=== PATIENT | male | born 1945 | race Caucasian/White ===

== ENCOUNTER 2018-05-14 12:55 | Outpatient (CLI) | payer MEDICARE, SELFPAY ==
--- NOTE | 2018-05-14 13:38 | W.PREOPHP ---
Date of service: 05/14/18 Assessment and Plan (1) Osteoarthritis of left knee: Current visit: Yes Status: Chronic Patient has severe osteoarthritis of the left knee, and after conservative treatment has elected to move forward with a left total knee replacement. Details of surgery discussed with patient as well as risks and pertinent anatomy. All questions were answered. History of Present Illness Chief Complaint: Left knee pain Narrative: Jaylon is a 72-year-old male with severe memory loss, making him a poor historian. He is here with his who fills in most of the history. Jaylon complains of left knee pain that has been going on for many years. He has recently in the last year had a right total knee replacement. He has also been treated for left knee pain conservatively for many years. He has had injections, and done exercises to try to keep this knee healthy as long as possible. According to his he is gotten to the point where his knee is painful on a daily basis. He is done very well from a right total knee replacement, and is looking to move forward with a left total knee replacement. He has had x-rays done which does show severe arthritis in the left knee, with complete loss of joint space. Due to failure of conservative treatments at this point, Jaylon and his would like to move forward with a left total knee replacement. Pertinent Surgical Information Patient denies history of CVA, MA, angina, asthma, COPD, renal or liver disorders, hepatitis, bleeding disorders, diabetes, immune or thyroid disorders. No complications from anesthesia. Patient has had recent workup for his heart which includes a stress test with echocardiogram. This test resulted in normal results, anesthesia is aware. Review of Systems Constitutional Denies fever(s) ENT Denies dizziness and Denies sore throat Cardiovascular Denies chest pain, Denies palpitations and Denies dyspnea Respiratory Denies dyspnea Gastrointestinal Denies abdominal pain, Denies melena, Denies hematochezia, Denies diarrhea, Denies nausea and Denies vomiting Genitourinary Denies hematuria and Denies dysuria Neurologic Denies dizziness Endocrine Denies palpitations [facility] Family History Mother Personal history of malignant neoplasm Father Personal history of malignant neoplasm Sister No problems noted. Brother Essential hypertension Heart disease Hyperlipidemia Grandfather Personal history of malignant neoplasm Grandfather No problems noted. Grandmother No problems noted. Grandmother No problems noted. Medical History Hypertension (Chronic) Social History Smoking/Tobacco Use Status: Former Tobacco Use Surgical History Colonoscopy - MAC (07/27/13) PROCEDURES Meds Home Medications Medication Instructions Recorded Confirmed Type vitamin B comp with C no.4 [Super 1 tab PO DAILY 11/02/12 04/22/17 History B Complex] omega-3 fatty acids-fish oil [Fish 1 ea PO DAILY 06/10/13 05/14/18 History Oil 1,000 Mg Capsule] memantine [Namenda Xr] 28 mg PO DAILY #60 tab-cap 09/05/15 05/14/18 History naproxen sodium [Aleve] 2 tab PO BID 05/07/16 05/14/18 History losartan-hydrochlorothiazide 1 tab PO DAILY #90 tab 02/09/18 05/14/18 Rx [Hyzaar 100-25 Tablet] amlodipine 5 mg tablet 5 mg PO DAILY #90 tab-cap 04/30/18 05/14/18 Rx Allergies Allergy/AdvReac Type Severity Reaction Status Date / Time simvastatin AdvReac JOINT PAIN Unverified 04/22/17 09:29 Exam [facility] Head: normocephalic and atraumatic General nose exam: no nasal discharge Throat: uvula midline and no uvular edema Other: soft palate rises symmetrically, no erythema Eyes Conjunctivae: conjunctivae normal Sclera: sclerae normal Pupils: PERRL Resp Effort & Inspection: normal respiratory effort Auscultation: clear to auscultation bilaterally and no wheezes Cardio Rate: regular rate Rhythm: regular rhythm Heart Sounds: S1 normal, S2 normal and no murmurs Results Labs : 05/14/18 14:18 05/14/18 14:18
--- NOTE | 2018-05-14 13:41 | HPE_ITS ---
Date of service: 05/14/18 Assessment and Plan (1) Osteoarthritis of left knee: Current visit: Yes Status: Chronic Patient has severe osteoarthritis of the left knee, and after conservative treatment has elected to move forward with a left total knee replacement. Details of surgery discussed with patient as well as risks and pertinent anatomy. All questions were answered. History of Present Illness Chief Complaint: Left knee pain Narrative: Jaylon is a 72-year-old male with severe memory loss, making him a poor historian. He is here with his who fills in most of the history. Jaylon complains of left knee pain that has been going on for many years. He has recently in the last year had a right total knee replacement. He has also been treated for left knee pain conservatively for many years. He has had injections , and done exercises to try to keep this knee healthy as long as possible. According to his he is gotten to the point where his knee is painful on a daily basis. He is done very well from a right total knee replacement, and is looking to move forward with a left total knee replacement. He has had x-rays done which does show severe arthritis in the left knee, with complete loss of joint space. Due to failure of conservative treatments at this point, Jaylon and his would like to move forward with a left total knee replacement. Pertinent Surgical Information Patient denies history of CVA, PR, angina, asthma, COPD, renal or liver disorders, hepatitis, bleeding disorders, diabetes, immune or thyroid disorders. No complications from anesthesia. Patient has had recent workup for his heart which includes a stress test with echocardiogram. This test resulted in normal results, anesthesia is aware. Review of Systems Constitutional Denies fever(s) ENT Denies dizziness and Denies sore throat Cardiovascular Denies chest pain, Denies palpitations and Denies dyspnea Respiratory Denies dyspnea Gastrointestinal Denies abdominal pain, Denies melena, Denies hematochezia, Denies diarrhea, Denies nausea and Denies vomiting Genitourinary Denies hematuria and Denies dysuria Neurologic Denies dizziness Endocrine Denies palpitations [facility] Family History Mother Personal history of malignant neoplasm Father Personal history of malignant neoplasm Sister No problems noted. Brother Essential hypertension Heart disease Hyperlipidemia Grandfather Personal history of malignant neoplasm Grandfather No problems noted. Grandmother No problems noted. Grandmother No problems noted. Medical History Hypertension (Chronic) Social History Smoking/Tobacco Use Status: Former Tobacco Use Surgical History Colonoscopy - MAC (07/27/13) PROCEDURES Meds Home Medications Medication Instructions Recorded Confirmed Type vitamin B comp with C no.4 [Super 1 tab PO DAILY 11/02/12 04/22/17 History B Complex] omega-3 fatty acids-fish oil [Fish 1 ea PO DAILY 06/10/13 05/14/18 History Oil 1,000 Mg Capsule] memantine [Namenda Xr] 28 mg PO DAILY #60 tab-cap 09/05/15 05/14/18 History naproxen sodium [Aleve] 2 tab PO BID 05/07/16 05/14/18 History losartan-hydrochlorothiazide 1 tab PO DAILY #90 tab 02/09/18 05/14/18 Rx [Hyzaar 100-25 Tablet] amlodipine 5 mg tablet 5 mg PO DAILY #90 tab-cap 04/30/18 05/14/18 Rx Allergies Allergy/AdvReac Type Severity Reaction Status Date / Time simvastatin AdvReac JOINT PAIN Unverified 04/22/17 09:29 Exam [facility] Head: normocephalic and atraumatic General nose exam: no nasal discharge Throat: uvula midline and no uvular edema Other: soft palate rises symmetrically, no erythema Eyes Conjunctivae: conjunctivae normal Sclera: sclerae normal Pupils: PERRL Resp Effort & Inspection: normal respiratory effort Auscultation: clear to auscultation bilaterally and no wheezes Cardio Rate: regular rate Rhythm: regular rhythm Heart Sounds: S1 normal, S2 normal and no murmurs Results Labs : 05/14/18 14:18 05/14/18 14:18
[2018-05-14 14:35] LABS: Abs Immature Grans 0.01 k/cumm (0.0-0.09); Absolute Basophil Count 0.02 k/cumm (0.0-0.2); Absolute Eosinophil Count 0.08 k/cumm (0.0-0.7); Absolute Lymphocyte Count 0.98 k/cumm (1.2-3.4); Absolute Monocyte Count 0.76 k/cumm (0.11-0.7); Absolute Neutrophil Count 3.41 k/cumm (1.2-6.7); Basophils % 0.4; Eosinophils % 1.5; HCT 42.9 % (40.0-50.0); HGB 14.6 g/dL (13.5-17.5); Immature Grans % 0.2; Lymphocytes % 18.6; Mean Corpuscular Hemoglobin 32.2 pg (27.0-33.0); Mean Corpuscular Volume 94.5 fL (80-95); Monocytes % 14.4; Neutrophils % 64.9; Platelet Count 201 x1000/uL (130-400); RBC 4.54 m/cumm (4.50-6.00); RBC Distribution Width 12.8 % (11.8-14.1); White Blood Cell Count 5.26 k/cumm (4.4-10.8)
[2018-05-14 15:20] LABS: BUN 21 mg/dL (7-18); CREATININE 0.94 mg/dL (0.70-1.30); Chloride 101 mmol/L (98-107); Glucose 115 mg/dL (70-100); Sodium 138 mmol/L (136-145)
== END 2018-05-14 13:15 ==
PROVIDERS: PCP Emergency Medicine; Visit Provider Orthopaedic Surgery
DX: M25.562 Pain in left knee (principal); M17.12 Unilateral primary osteoarthritis, left knee; E78.00 Pure hypercholesterolemia, unspecified; I10 Essential (primary) hypertension
CPT/HCPCS: 36415; 80051; 82947; 84520; NC; 82565; 85025; 93005; 93010

== ENCOUNTER → 2018-05-19 07:35 | Outpatient (BNVA) | payer MEDICARE, SELFPAY | PROVIDERS: PCP Emergency Medicine; Referring Provider Emergency Medicine; Visit Provider Orthopaedic Surgery | DX: R69 Illness, unspecified (principal) ==

== ENCOUNTER 2018-05-19 08:44 | Inpatient (IN) | payer MEDICARE, SELFPAY ==
[2018-05-19] VITALS (13 sets, daily range): BP systolic 110–159; BP diastolic 61–99; PULSE 64–77; RESP 13–24; TEMP 36.4–36.8; O2SAT 91–97
[2018-05-19] MEDS: Lactated Ringers 1,000 ML 80 ML IV ×2 (10:10→14:53)
[2018-05-19] MEDS: Bupivacaine LIPOSOME/PF 133 MG/10 ML VIAL IJ (11:20)
[2018-05-19] MEDS: Bupivacaine 0.25% Pres-Free 10 ML VIAL (11:20)
[2018-05-19] MEDS: Hydrogen Peroxide 3% 480 ML BTL (12:55)
[2018-05-19] MEDS: Ketorolac 30 MG/ML VIAL (13:34)
--- NOTE | 2018-05-19 14:51 | DI.RAD_ITS ---
SYMPTOM/DIAGNOSIS: LT TOTAL KNEE ARTHROPLASTY, END STAGE OA LT KNEE LEFT KNEE: Two views. Comparison is made with 06/28/12. The patient is now status post left total knee replacement. The orthopedic hardware appears in good position. The bones are intact and normally mineralized. Skin cora are present. Vascular calcifications are seen in the soft tissues. IMPRESSION: Status post left TKR.
--- NOTE | 2018-05-19 15:54 | ROE_ITS ---
Date of Surgery: May 19, 2018 Preoperative Diagnosis: End-stage osteoarthritis, left knee, with varus deformity. Postoperative Diagnosis: End-stage osteoarthritis, left knee, with varus deformity. Procedure: Left total knee arthroplasty, cemented. Surgeon: Cecilio Wolfe M.D. Side Panel Hanger: Nikki Harvey PA-C Anesthetic: Adductor canal block followed by spinal anesthesia - [place] CRNA Prep: ChloraPrep Indications: This patient has aiqk-hy-fzrubduz dementia. He's status post successful right total knee arthroplasty approximately a year ago. He's having intractable symptoms of his left knee which have not responded to viscosupplementation or corticosteroid injections. In order to go upstairs at night to go to sleep he has to crawl on his hands and knees. He has a fairly good understanding of his knee symptomatology, but sometimes is forgetful of it. His was very anxious to have something done because of his incapacitation and his inability to walk any long distances. Radiographs confirm varus deformity. The patient had a similar degree of dementia a year ago and underwent successful right knee arthroplasty and the plan was to do the same clinical treatment of his left knee. The only exception was that I would maintain a Blount catheter in place because it had to be instilled on the night after surgery because he was unable to void. I greeted the patient in the Day Surgery holding area. He was pleasant and cooperative. He seemed to understand the planned procedure. I marked his left leg. Description of the Operative Procedure: He underwent adductor canal block with ultrasonic guidance, then he was taken and underwent spinal anesthesia. He was placed in the supine position and a Blount catheter was inserted without difficulty. The left leg was prepped with ChloraPrep and a pneumatic tourniquet was applied to the left proximal thigh. After exsanguinating the limb the tourniquet was inflated to 380 mmHg. A standard anterior approach for medial parapatellar arthrotomy for total knee arthroplasty was performed. Skin and subcutaneous tissues were incised and hemostasis was controlled by electrocautery. A copious amount of joint fluid was encountered and evacuated. There was no evidence of any infection. The patella was everted and osteophytes were trimmed off the medial tibial plateau and the medial femoral condyle. A subperiosteal release of a portion of the medial collateral ligament was done in order to correct his varus deformity. Anterior cruciate ligament was sectioned. Using an intramedullary guide quin, a 6-degree valgus bushing was placed in the femoral canal. The distal femur was resected based off this intramedullary guide. Care was taken to perform a 9 mm resection of the distal femur over the less-involved lateral side. This resulted in less bony resection on the medial femoral condyle distally. I then used instrumentation to make cuts over the femur for placement of a size #4 femoral component. This was the same size that was used on his left side. Anterior and posterior cuts were made as well as chamfer cuts and a size #4 femoral component fit appropriately. Next the posterior cruciate ligament was recessed and external alignment jig was then used to resect the proximal tibia, resecting more bone laterally than medially to correct for the varus deformity. I felt a size #4 tibial tray the most appropriate fit. Trial reduction was satisfactory. An intramedullary instrument was used then to create a channel for the rotating platform. The patella was measured with a caliper and measured 25 mm. It was resected by a combination of a cutting guide and a free- hand technique. I felt a 38 mm tri-prong patellar component would have the most appropriate fit. The lug fixation holes were drilled in the patella and a size 38 mm tri-prong patella fit, restoring the patellar thickness to 25 mm. The bone was prepared to cement fixation. Methylmethacrylate-containing gentamicin was placed and the tibial component was cemented. The cement was placed in a vacuum chamber. The cement was allowed to cure; extraneous amount was removed. A second batch of cement was then mixed to cement the patella and femoral components at the same time. After the cement was cured, care was taken to make sure all extraneous cement was removed. A final trial reduction was performed and the actual size #4 x 10 mm rotating platform component was inserted. There was no evidence of bearing spinout. Flexion and extension gaps were restored perfectly. Betadine irrigation was then performed; 17.5 cc of Betadine was placed in saline and irrigated into the knee. This was over the course of 3 minutes. It was then irrigated with 1000 cc of saline. Medial parapatellar arthrotomy was then performed, closing the capsule with sutures of #1 Vicryl in a [id number] fashion. The paratenon was repaired with 2-0 Vicryl. Subcutaneous tissues were repaired with 2-0 Vicryl. Prior to skin closure, the knee joint was infiltrated with 3 gm of tranexamic acid in 100 cc of saline to minimize bleeding. The tourniquet was released and hemostasis was under control. Subcutaneous tissues were closed with 2-0 Vicryl. The skin was closed with cora. Sterile bandages were applied consisting of Xeroform gauze, 4x4s, ABD pads, and a 6-inch conforming gauze bandage followed by a 6-inch HERNAN wrap, a Cryo/Cuff, and a commercial knee immobilizer. The patient had excellent return of dorsalis pedis pulse and was taken to the Recovery Room in satisfactory condition, tolerating the procedure well.
[2018-05-19] MEDS: POTASSIUM CHLORIDE/D5-0.9%NACL 1,000 ML 125 MEQ IV (17:21)
[2018-05-19] MEDS: Melatonin 3 MG TAB 9 MG PO (21:27)
[2018-05-19] MEDS: Acetaminophen 325 MG TAB 650 MG PO (23:45)
[2018-05-20] MEDS: POTASSIUM CHLORIDE/D5-0.9%NACL 1,000 ML 125 MEQ IV ×2 (01:03→10:54)
[2018-05-20 03:41] VITALS: BP 145/86; PULSE 74; RESP 18; TEMP 36.7; O2SAT 95
[2018-05-20] MEDS: Acetaminophen 325 MG TAB 650 MG PO ×3 (03:50→15:31)
[2018-05-20] MEDS: oxyCODONE 5 MG TAB PO ×3 (03:51→11:01)
[2018-05-20 07:25] VITALS: BP 143/83; PULSE 60; RESP 18; TEMP 36.8; O2SAT 93
[2018-05-20 07:29] LABS: HCT 36.5 % (40.0-50.0); HGB 12.6 g/dL (13.5-17.5); Mean Corp. HGB Concentration 34.5 g/dL (32.0-36.0); Mean Corpuscular Hemoglobin 32.9 pg (27.0-33.0); Mean Corpuscular Volume 95.3 fL (80-95); Mean Platelet Volume 10.5 fL (8.0-11.0); Platelet Count 174 x1000/uL (130-400); RBC 3.83 m/cumm (4.50-6.00); RBC Distribution Width 12.5 % (11.8-14.1); White Blood Cell Count 8.67 k/cumm (4.4-10.8)
[2018-05-20 07:35] VITALS: O2SAT 93
[2018-05-20] MEDS: Enoxaparin 30 MG/0.3 ML SYR SC ×2 (08:41→19:34)
[2018-05-20] MEDS: amLODIPine 5 MG TAB PO (08:42)
[2018-05-20] MEDS: Losartan 50 MG TAB 100 MG PO (08:42)
[2018-05-20] MEDS: Multivitamin w/Minerals TAB 1 TAB PO (08:43)
[2018-05-20] MEDS: Pantoprazole 40 MG TABCR PO (08:43)
[2018-05-20] MEDS: Hydrochlorothiazide 25 MG TAB PO (08:44)
--- NOTE | 2018-05-20 09:17 | IN_ITS ---
Date of service: 05/20/18 Time of Service: 08:06 PT Notes Date: 05/20/18 Referring Doctor: Dr. Cecilio Wolfe PT Orders: PT Consult s/p L TKA 05/19/18 Precautions: WBAT L LE PATIENT PROFILE/ADMITTING DIAGNOSIS: Patient is a 72yr old male s/p left total knee arthroplasty 05/19/[address] Wolfe. PMHX: s/p right total knee arthroplasty 04/22/17, osteoarthritis left knee, Alzheimer's disease, hard of hearing, tinnitus, C2 fracture, open reduction internal fixation L hip fracture, R ulnar plating, R Achilles tendon repair, R knee osteoarthritis, hyperlipidemia, diverticulosis, scrotal varices Social History/Home Situation: Lives at home with his , 2-3 steps with rail to enter, lives on 1 level, walk-in shower, Baseline mobility independent gait with no device, independent with ADLS Equipment owned/DME: shower seat, FWW SUBJECTIVE: Patient is lying in bed, alert and agreeable to PT consult, in room with patient assisting him. Pt asking when albert catheter can come out. OBJECTIVE: General Observation: Albert catheter, IV RUE, SCD's, knee immobilizer L LE, cryo cuff L knee Mental Status: A & O x2 oriented to person and situation Pain: no complaints BED MOBILITY/TRANSFERS: * knee immobilizer on for all transfers Supine-sit: HOB 30 degrees, independent Sit-stand: CGA with FWW Bed-chair: SBA with FWW Stand-sit: SBA GAIT: * knee immobilizer on for all gait CGA with FWW 50ftx2 WBAT L LE BALANCE: Static sitting: normal Dynamic Sitting: normal Static Standing: fair Dynamic Standing: fair SPECIAL TESTS: Mobility Limitations Standardized Measure [facility] AM -PAC ?6 clicks? Basic Mobility Inpatient Short Form: raw score: 18 standardized score: 43.63 CMS score: 46.58 % CMS modifier: CK INFORMED CONSENT/EDUCATION: Pt instructed in purpose of PT Consult and plan of care, with repeated verbal reminders of purpose of visit ASSESSMENT: Patient is a 72yr old male s/p left total knee arthroplasty by Dr. Wolfe in setting of s/p right total knee arthroplasty 04/22/17, Alzheimer's disease, hard of hearing, tinnitus, C2 fracture, open reduction internal fixation L hip fracture, R ulnar plating, R Achilles tendon repair. Patient presents with clinical signs and symptoms consistent with day 1 post op s/p left total knee arthroplasty as demonstrated by the following impairment level findings: decreased ROM left knee, decreased left quad strength, decreased strength with standing transfers, decreased gait stability requiring FWW due decreased static and dynamic standing balance post operatively. Pt was able to gait train in hallway this morning and transfer to chair for breakfast. good mobility with no complaints of pain, anticipate he will recover quickly. Plan is return to home setting with at discharge. Impairments are contributing to the following functional limitations: [facility] CMS score: 46.58% Patient is assessed as a moderate 42231 _x_ complexity based on the following: History: see above Examination: see above Presentation: evolving Decision Making: [facility] CMS score: 46.58% GOALS Goals x1 week 1. Supine-sit: independent HOB flat 2. Sit-Supine: independent HOB flat 3. Sit-Stand: supervision with FWW 4. Stand-sit: supervision 5. Bed-chair: SBA FWW 6. Chair-bed: SBA FWW 7. Gait: SBA FWW 150ft, WBAT R LE 8. Stairs: up and down 3 steps with railing, SBA 9. I with home exercise program for TKA PLAN OF CARE/TREATMENT PLAN: 1-2x/day, 7 days/ week x 1 week Plan of care has been reviewed with the EDGE BANDING MACHINE OFFBEARER providing the service under Physical therapy direction. Initiate physical therapy intervention for strengthening, bed mobility, transfers, gait, stairs, balance training, use of assistive device, use of knee immobilizer, cryocuff DISCHARGE RECOMMENDATIONS home with , patient has all DME TREATMENT TIME/MINUTES/CODES 25min IE 8:05 Talia Garcia PT
--- NOTE | 2018-05-20 10:03 | W.PM.PROGNOT ---
Assessment and Plan (1) Arthritis of left knee: Current visit: Yes Status: Acute s/p left total knee arthroplasty doing well. D/c albert. Continue iv prophylactic antibiotics until this pm. Surgical findings reviewed with patient and . Subjective Patient reports: no new complaints Exam Extrem Other: No neurovascular deficits left leg. Already up with physical therapy. Patient wants albert catheter removed Objective Objective Clinical Data: Abnormal lab results 05/20/18 Range/Units 06:45 RBC 3.83 L (4.50-6.00) m/cumm Hgb 12.6 L (13.5-17.5) g/dL Hct 36.5 L (40.0-50.0) % MCV 95.3 H (80-95) fL Vital Signs Temperature 98.2 F 05/20/18 07:25 Temperature Source Tympanic 05/20/18 07:25 Pulse 60 05/20/18 07:25 Pulse Rhythm Regular 05/19/18 22:37 Respiratory Rate 18 05/20/18 07:25 Respiratory Effort Non-Labored 05/19/18 22:37 Respiratory Depth Normal 05/19/18 22:37 Respiratory Pattern Normal 05/19/18 22:37 Blood Pressure 143/83 H 05/20/18 07:25 Pulse Oximetry 93 L 05/20/18 07:25 Oxygen Delivery Method Room Air 05/20/18 07:25 Oxygen Flow Rate 0 05/20/18 07:25 Pain Level 2 05/20/18 08:42 Intake & Output 05/19/18 05/19/18 05/20/18 11:59 23:59 11:59 Intake Total 50 / 50 1254.000 / 6044.532 5090. / 2021. Output Total 2094 / 2094 400 / 400 Balance 50 / 50 -841.000 / -837.082 0147.5 / 1622.5 Weight 205 lb 7.533 oz Intake: IV 50 / 50 1254.000 / 8076.739 3173.5 / 1062.5 Oral 960 / 960 Output: Urine 2074 / 2074 400 / 400 Estimated Blood Loss Other: Urine Color Pale Yellow Yellow Urine Appearance Clear Clear Emesis Description None Laboratory Results WBC 8.67 k/cumm (4.4-10.8) 05/20/18 06:45 RBC 3.83 m/cumm (4.50-6.00) L 05/20/18 06:45 Hgb 12.6 g/dL (13.5-17.5) L 05/20/18 06:45 Hct 36.5 % (40.0-50.0) L 05/20/18 06:45 MCV 95.3 fL (80-95) H 05/20/18 06:45 MCH 32.9 pg (27.0-33.0) 05/20/18 06:45 MCHC 34.5 g/dL (32.0-36.0) 05/20/18 06:45 RDW 12.5 % (11.8-14.1) 05/20/18 06:45 Plt Count 174 x1000/uL (130-400) 05/20/18 06:45 MPV 10.5 fL (8.0-11.0) 05/20/18 06:45
--- NOTE | 2018-05-20 11:12 | PT.INTREAT ---
Date of service: 05/20/18 Time of Service: 11:03 PT Notes Inpatient Physical Therapy Treatment Note Date: 05/20/18 PRECAUTIONS: WBAT L LE, knee immobilizer for L LE SUBJECTIVE: Pt sitting in recliner chair, agreeable to therapy session, daughter in room visiting. OBJECTIVE: General observation: IV R UE, knee immobilizer and cryocuff L LE PAIN: no c/o pain BED MOBILITY/TRANSFERS: * knee immobilizer on for all transfers Sit-stand: CGA with FWW Chair-bed: SBA with FWW Stand-sit: SBA Sit-supine: HOB flat independent GAIT: * knee immobilizer on for all gait SBA with FWW 200ft WBAT L LE, steady step through gait pattern STAIRS: up/down 5 steps with railing SBA WBAT L LE, step to step sequence BALANCE: Static sitting: normal Dynamic Sitting: normal Static Standing: fair Dynamic Standing: fair ASSESSMENT: Pt up in chair x 2 hours this morning, minimal pain in left knee. Progressed to gait with FWW 200ft and able to ascend/descend 5 steps with railing. Pt mobilizing well post operatively, anticipate he would be ready to return home as early as tomorrow if medically cleared. PLAN: Progress transfers Progress gait with FWW Progress strengthening TREATMENT CODE/TIME: 25min TAx1 TPx1 11:00 Talia Garcia PT
[2018-05-20 11:25] VITALS: BP 136/82; PULSE 68; RESP 19; TEMP 37.2; O2SAT 94
--- NOTE | 2018-05-20 15:18 | PDOC.CMIN ---
- If Service Date Differs Date of service: 05/20/18 Time of Service: 15:18 Care Management Initial Assess REASON FOR HOSPITALIZATION:: Osteoarthritis of (L) knee PAST MEDICAL HISTORY/PAST SURGICAL HISTORY:: Alzheimers, Scrotal varices, Psoriasis, Onychomycosis, Hyperlipidemia, Hearing Loss, fracture of lumbar spine, Essential hypertension, Carpal tunnel syndrome PREVIOUS FUNCTIONAL STATUS/SOCIAL/FAMILY SUPPORTS:: Jaylon resides with his Orion of 36 years in [facility]. This is his second marriage, him and his both have two children from their previous marriages. Jaylon is independent at baseline, he drives, and manages ADL's. CURRENT FUNCTIONAL STATUS:: Currently Jaylon is sitting up in his chair when this commercial real estate underwriter visits. his Orion is in the room, both are pleasant and open to discussion. Orion requested a cribbage board, however does not have one at this time, provided Orion with checkers board. ADVANCE DIRECTIVES:: On file - Orion is agent. Jonatan Arango is alternate Has patient been provided with information about the portal?: Yes Did the patient sign up for the portal?: No CODE STATUS:: Full Code INSURANCE COVERAGE / FINANCIAL ISSUES:: medicare, AARP CURRENT HOME/COMMUNITY SERVICES/EQUIPMENT:: Currently Jaylon receives no services in the community. He has a FWW and aluminum crutches at home. PRIMARY CARE PHYSICIAN:: Dr. Casas POTENTIAL DISCHARGE NEEDS:: F/U appointment with Dr. Wolfe. PT - Pt has an appt scheduled at [facility] for next Saturday 05/26 PATIENT/FAMILY EDUCATION NEEDS:: Review DC instructions, any limitations, and ongoing DC planning discussion. Discuss Ask Me Three ANTICIPATED BARRIERS TO DISCHARGE:: None identified at this time. TRANSPORTATION:: Via private vehicle with Orion PLAN:: Jaylon will return home with no anticipated services. He will F/U with Dr. Wolfe and plan of care as prescribed. Jaylon has an appt made already at [facility] for Saturday 05/26. Jaylon's Orion will transport when ready.
--- NOTE | 2018-05-20 15:26 | INITIAL_ITS ---
- If Service Date Differs Date of service: 05/20/18 Time of Service: 15:18 Care Management Initial Assess REASON FOR HOSPITALIZATION:: Osteoarthritis of (L) knee PAST MEDICAL HISTORY/PAST SURGICAL HISTORY:: Alzheimers, Scrotal varices, Psoriasis, Onychomycosis, Hyperlipidemia, Hearing Loss, fracture of lumbar spine , Essential hypertension, Carpal tunnel syndrome PREVIOUS FUNCTIONAL STATUS/SOCIAL/FAMILY SUPPORTS:: Jaylon resides with his Orion of 36 years in [facility]. This is his second marriage, him and his both have two children from their previous marriages. Jaylon is independent at baseline, he drives, and manages ADL's. CURRENT FUNCTIONAL STATUS:: Currently Jaylon is sitting up in his chair when this life insurance underwriter visits. his Orion is in the room, both are pleasant and open to discussion. Orion requested a cribbage board, however does not have one at this time, provided Orion with checkers board. ADVANCE DIRECTIVES:: On file - Orion is agent. Jonatan Arango is alternate Has patient been provided with information about the portal?: Yes Did the patient sign up for the portal?: No CODE STATUS:: Full Code INSURANCE COVERAGE / FINANCIAL ISSUES:: medicare, AARP CURRENT HOME/COMMUNITY SERVICES/EQUIPMENT:: Currently Jaylon receives no services in the community. He has a FWW and aluminum crutches at home. PRIMARY CARE PHYSICIAN:: Dr. Casas POTENTIAL DISCHARGE NEEDS:: F/U appointment with Dr. Wolfe. PT - Pt has an appt scheduled at [facility] for next Saturday 05/26 PATIENT/FAMILY EDUCATION NEEDS:: Review DC instructions, any limitations, and ongoing DC planning discussion. Discuss Ask Me Three ANTICIPATED BARRIERS TO DISCHARGE:: None identified at this time. TRANSPORTATION:: Via private vehicle with Orion PLAN:: Jaylon will return home with no anticipated services. He will F/U with Dr. Wolfe and plan of care as prescribed. Jaylon has an appt made already at [facility] for Saturday 05/26. Jaylon's Orion will transport when ready.
[2018-05-20 15:37] VITALS: BP 151/84; PULSE 68; RESP 24; TEMP 36.6; O2SAT 95
[2018-05-20] MEDS: Melatonin 3 MG TAB 9 MG PO (21:17)
[2018-05-20 23:37] VITALS: BP 133/79; PULSE 64; RESP 16; TEMP 36.6; O2SAT 95
[2018-05-21] MEDS: Acetaminophen 325 MG TAB 650 MG PO ×4 (03:11→19:17)
[2018-05-21 03:43] VITALS: BP 157/97; PULSE 70; RESP 18; TEMP 37; O2SAT 93
[2018-05-21 07:25] VITALS: O2SAT 94
[2018-05-21 07:32] VITALS: BP 160/93; PULSE 72; RESP 17; TEMP 36.8; O2SAT 95
[2018-05-21 07:32] LABS: HCT 36.9 % (40.0-50.0); HGB 12.1 g/dL (13.5-17.5); Mean Corp. HGB Concentration 32.8 g/dL (32.0-36.0); Mean Corpuscular Hemoglobin 31.7 pg (27.0-33.0); Mean Corpuscular Volume 96.6 fL (80-95); Mean Platelet Volume 10.8 fL (8.0-11.0); Platelet Count 160 x1000/uL (130-400); RBC 3.82 m/cumm (4.50-6.00); White Blood Cell Count 6.69 k/cumm (4.4-10.8)
[2018-05-21 07:43] LABS: Anion Gap 8.9 mmol/L (3-11); BUN 16 mg/dL (7-18); CO2 27.1 mmol/L (21.0-32.0); CREATININE 0.96 mg/dL (0.70-1.30); Calcium 8.3 mg/dL (8.5-10.1); Chloride 106 mmol/L (98-107); Glucose 111 mg/dL (70-100); Potassium 4.2 mmol/L (3.5-5.1); Sodium 142 mmol/L (136-145)
[2018-05-21] MEDS: Losartan 50 MG TAB 100 MG PO (07:49)
[2018-05-21] MEDS: amLODIPine 5 MG TAB PO (07:50)
[2018-05-21] MEDS: Multivitamin w/Minerals TAB 1 TAB PO (07:50)
[2018-05-21] MEDS: Enoxaparin 30 MG/0.3 ML SYR SC ×2 (07:50→19:17)
[2018-05-21] MEDS: Hydrochlorothiazide 25 MG TAB PO (07:50)
[2018-05-21] MEDS: Pantoprazole 40 MG TABCR PO (07:50)
--- NOTE | 2018-05-21 08:48 | PGE_ITS ---
Assessment and Plan (1) Arthritis of left knee: Current visit: Yes Status: Acute Total knee arthroplasty in a patient with early dementia hemoglobin is stable. We will keep her in hospital 24 more hours just to follow any drainage from the incision. I suspect that this is secondary to his relatively high doses of Aleve preoperatively. I will order Tylenol and Benadryl that he can take at p.m. Unfortunately Tylenol PM is nonformulary morphine will be given IM for severe breakthrough pain in low doses.. Subjective Interval history since last seen: Patient seems comfortable sitting up in the chair. He was quite confused after 5 mg of oxycodone given last night. Patient 's would like to avoid oxycodone if at all possible we will try Tylenol PM for nighttime sedation and pain control. This is in addition to Aleve 440 mg twice daily Exam Extrem Other: Moderate drainage noted on the incision and bandages no active or acute bleeding. The joint does not appear to be swollen. Incision looks good new sterile dressing applied by MD. Objective Objective Clinical Data: Abnormal lab results 05/21/18 05/21/18 Range/Units 06:55 06:55 RBC 3.82 L (4.50-6.00) m/cumm Hgb 12.1 L (13.5-17.5) g/dL Hct 36.9 L (40.0-50.0) % MCV 96.6 H (80-95) fL Glucose 111 H (70-100) mg/dL Calcium 8.3 L (8.5-10.1) mg/dL Vital Signs Temperature 98.6 F 05/21/18 03:43 Temperature Source Tympanic 05/21/18 03:43 Pulse 70 05/21/18 03:43 Pulse Rhythm Regular 05/20/18 23:40 Respiratory Rate 18 05/21/18 03:43 Respiratory Effort Non-Labored 05/20/18 23:40 Respiratory Depth Normal 05/20/18 23:40 Respiratory Pattern Normal 05/20/18 23:40 Blood Pressure 157/97 H 05/21/18 03:43 Pulse Oximetry 93 L 05/21/18 03:43 Oxygen Delivery Method Room Air 05/21/18 03:43 Oxygen Flow Rate 0 05/21/18 03:43 Pain Level 2 05/21/18 06:56 Comment 05/21/18 03:43 Intake & Output 05/20/18 05/20/18 05/21/18 11:59 23:59 11:59 Intake Total 3022.5 / 3022.5 1037.5 / 1037.5 Output Total 750 / 750 Balance 2272.5 / 2272.5 1037.5 / 1037.5 Intake: IV 2062.5 / 2062.5 437.5 / 437.5 Oral 960 / 960 600 / 600 Output: Urine 750 / 750 Other: Urine Color Yellow Yellow Urine Appearance Clear Clear Comment voided x 3 overnight, at bedside assisting with tolieting Voiding Methods Toilet Toilet Laboratory Results WBC 6.69 k/cumm (4.4-10.8) 05/21/18 06:55 RBC 3.82 m/cumm (4.50-6.00) L 05/21/18 06:55 Hgb 12.1 g/dL (13.5-17.5) L 05/21/18 06:55 Hct 36.9 % (40.0-50.0) L 05/21/18 06:55 MCV 96.6 fL (80-95) H 05/21/18 06:55 MCH 31.7 pg (27.0-33.0) 05/21/18 06:55 MCHC 32.8 g/dL (32.0-36.0) 05/21/18 06:55 RDW 13.0 % (11.8-14.1) 05/21/18 06:55 Plt Count 160 x1000/uL (130-400) 05/21/18 06:55 MPV 10.8 fL (8.0-11.0) 05/21/18 06:55 Sodium 142 mmol/L (136-145) 05/21/18 06:55 Potassium 4.2 mmol/L (3.5-5.1) 05/21/18 06:55 Chloride 106 mmol/L (98-107) 05/21/18 06:55 Carbon Dioxide 27.1 mmol/L (21.0-32.0) 05/21/18 06:55 Anion Gap 8.9 mmol/L (3-11) 05/21/18 06:55 BUN 16 mg/dL (7-18) 05/21/18 06:55 Creatinine 0.96 mg/dL (0.70-1.30) 05/21/18 06:55 Estimated GFR/1.73 m2 >= 60.00 (mL/min/1.73m2) 05/21/18 06:55 Glucose 111 mg/dL (70-100) H 05/21/18 06:55 Calcium 8.3 mg/dL (8.5-10.1) L 05/21/18 06:55
--- NOTE | 2018-05-21 09:57 | PT.INTREAT ---
Date of service: 05/21/18 Time of Service: 09:58 PT Notes Inpatient Physical Therapy Treatment Note Date: 05/21/18 PRECAUTIONS:WBAT on L SUBJECTIVE: Jaylon states that he is feeling pretty good today. OBJECTIVE: PAIN: Patient c/o pain in L knee with active flexion and ther ex BED MOBILITY/TRANSFERS Sit-stand: SBA Stand-sit: SBA GAIT Assistive Device: FWW Weight bearing: WBAT on L Assist: SBA Distance: 250' Deviation: Instruction for step-through gait pattern THEREX: Patient completed a LE strengthening and stabilization program, as per flow sheet. Patient's AROM is 5-91 degrees at this point. Ended session with cryocuff to L knee. ASSESSMENT: Patient tolerated session with some c/o pain in L knee with ther ex and active knee flexion. Patient tolerated a progression in gait training with FWW support, utilizing a step-through gait pattern following instruction and demonstration. PLAN: Continue with PT's POC TREATMENT CODE/TIME: 25 minutes; TA/TP
[2018-05-21 11:20] VITALS: BP 155/84; PULSE 73; RESP 20; TEMP 36.4; O2SAT 95
--- NOTE | 2018-05-21 12:05 | PDOC.CMPRO ---
- If Service Date Differs Date of service: 05/21/18 Time of Service: 12:05 Care Management Progress Note S/O: Jaylon is sitting up in his chair when this writer producer visits this morning. His Orion is present, both are pleasant and receptive to discussion. Orion states that they will be staying for one more night, and she is hopeful for a DC home tomorrow. Jaylon has been visiting with is and other family in his room and is well supported. He has been working with PT which has also been going well. A: 72 y/o male admitted 05/19/18 for osteoarthritis of (L) Knee. P: Jaylon will return home once medically cleared. He will F/U with Dr. Wolfe and plan of care as prescribed. Jaylon has an appointment scheduled for Outpatient PT with Bartolo Mcfarlane in [place] for 05/26. Jaylon's Orion will transport when ready.
--- NOTE | 2018-05-21 12:11 | CMPROGNOTE_ITS ---
- If Service Date Differs Date of service: 05/21/18 Time of Service: 12:05 Care Management Progress Note S/O: Jaylon is sitting up in his chair when this screen writer visits this morning. His Orion is present, both are pleasant and receptive to discussion. Orion states that they will be staying for one more night, and she is hopeful for a DC home tomorrow. Jaylon has been visiting with is and other family in his room and is well supported. He has been working with PT which has also been going well. A: 72 y/o male admitted 05/19/18 for osteoarthritis of (L) Knee. P: Jaylon will return home once medically cleared. He will F/U with Dr. Wolef and plan of care as prescribed. Jaylon has an appointment scheduled for Outpatient PT with Bartolo Mcfarlane in [place] for 05/26. Jaylon's Orion will transport when ready.
--- NOTE | 2018-05-21 12:45 | PHARADMIT ---
Admission Pharmacy Clinical Review OSTEOARTHITIS Code Status Full Code Current Weight Wgt-93.2 kg Renally Cleared and Narrow Therapeutic Index Meds CrCl~ 65 mL/min Meds-OK QTc Value / Action Taken NA BP Control, Fever BP- 160/93 Tmax- 36.8C Electrolytes reviewed Na-142 K+4.2 DVT Prophylaxis Lovenox Opiate Usage / Scheduled Bowel Regimen Ordered Yes Yes Plt/SCr for Heparin / Enoxaparin Plts-160 SCr-0.96 INR for Warfarin na H/H stable, WBC/Bands H&H- 12.1/36.9 WBC-3.82 Antibiotic appropriateness Ancef Cultures and Sensitivities na Surgical ABX d/c within 24 hr Yes DM control / Insulin Dosing BG-111 Heart Failure (Check EF%) (HERNAN's, B-Block, Diuretics) Norvasc, HCTZ, Losartan, IV to PO Switch No Home Meds Reviewed Yes Home Meds Not Ordered Mcdonald-3, Prednisone, various Vitamin formulsas Comments Curtis Namenda_XR
--- NOTE | 2018-05-21 15:19 | PT.INTREAT ---
Date of service: 05/21/18 Time of Service: 15:19 PT Notes Inpatient Physical Therapy Treatment Note Date: 05/21/18 PRECAUTIONS:WBAT on L SUBJECTIVE: Jaylon states that his incision is still draining a little, but that he feels good. OBJECTIVE: PAIN: Patient c/o L knee discomfort with active knee flexion and weight bearing BED MOBILITY/TRANSFERS Sit-stand: SBA Stand-sit: SBA GAIT Assistive Device: FWW Weight bearing: WBAT on L Assist: SBA Distance: 400' Deviation: Step-through gait pattern utilized THEREX: Patient completed a LE strengthening and stabilization program, as per flow sheet. Ended session with cryocuff to L knee. ASSESSMENT: Patient tolerated session with minimal c/o pain in L knee. He was able to tolerate a progression in gait distance with FWW support, utilizing a step-through gait pattern. PLAN: Continue with PT's POC TREATMENT CODE/TIME: 25 minutes; TA/TP
[2018-05-21] MEDS: diphenhydrAMINE 25 MG CAP PO (19:18)
[2018-05-22 01:38] VITALS: BP 145/89; PULSE 71; RESP 18; TEMP 37.1; O2SAT 94
[2018-05-22] MEDS: Acetaminophen 325 MG TAB 650 MG PO ×2 (01:39→06:56)
[2018-05-22 05:15] VITALS: BP 155/88; PULSE 65; RESP 18; TEMP 36.7; O2SAT 97
[2018-05-22 07:25] VITALS: BP 150/98; PULSE 72; RESP 16; TEMP 36; O2SAT 95
[2018-05-22] MEDS: Multivitamin w/Minerals TAB 1 TAB PO (08:11)
[2018-05-22] MEDS: Losartan 50 MG TAB 100 MG PO (08:11)
[2018-05-22] MEDS: amLODIPine 5 MG TAB PO (08:12)
[2018-05-22] MEDS: Pantoprazole 40 MG TABCR PO (08:12)
[2018-05-22] MEDS: Hydrochlorothiazide 25 MG TAB PO (08:12)
[2018-05-22] MEDS: Enoxaparin 30 MG/0.3 ML SYR SC (08:13)
--- NOTE | 2018-05-22 08:30 | W.PM.DS.N ---
DS: Diagnosis Discharge Diagnosis (1) Arthritis of left knee: Status: Acute Discharge Plan Discharge Details Reason For Visit: OSTEOARTHRITIS OF LEFT KNEE Admit Date/Time: 05/19/18 08:44 Admit Provider: Cecilio Wolfe Attending Provider: Cecilio Wolfe Primary Care Provider: Segundo Casas Home Meds and New Rx's Prescriptions: No Action vitamin B comp with C no.4 [Super B Complex + C] 150 MG tablet 1 tab PO DAILY RF: 0 omega-3 fatty acids-fish oil [Fish Oil] 1 EACH capsule 1 ea PO DAILY RF: 0 memantine [Namenda XR] 7 MG capsule,sprinkle,ER 24hr 28 mg PO DAILY Qty: 60 RF: 6 naproxen sodium [Aleve] 220 MG tablet 2 tab PO BID RF: 0 losartan-hydrochlorothiazide [Hyzaar] 1 EACH tablet 1 tab PO DAILY Qty: 90 RF: 4 amlodipine 5 mg tablet 5 mg PO DAILY Qty: 90 RF: 3 vit D3-folic [id number]-B12 2,000-800-0.32 unit-mcg-mg Tablet RF: 0 Exam Const General: cooperative Other: Patient had a great night last night. His spent the night with him and both are ready to go home. No chest pain pressure or shortness. Extrem General: normal to inspection Other: Wound has a benign-appearing. There is no bleeding from the incision. There is no unusual swelling. He has complete extension. DS: Data Vitals/I&O Vitals and I&O: Vital Signs Temperature 96.8 F L 05/22/18 07:25 Temperature Source Tympanic 05/22/18 07:25 Pulse 72 05/22/18 07:25 Pulse Rhythm Regular 05/22/18 01:30 Respiratory Rate 16 05/22/18 07:25 Respiratory Effort Non-Labored 05/22/18 01:30 Respiratory Depth Normal 05/22/18 01:30 Respiratory Pattern Normal 05/22/18 01:30 Blood Pressure 150/98 H 05/22/18 07:25 Pulse Oximetry 95 05/22/18 07:25 Oxygen Delivery Method Room Air 05/22/18 07:25 Oxygen Flow Rate 0 05/22/18 07:25 Pain Level 0 05/22/18 05:15 Comment 05/21/18 07:32 Intake & Output 05/21/18 05/21/18 05/22/18 11:59 23:59 11:59 Intake Total 490 / 490 240 / 240 Balance 490 / 490 240 / 240 Intake: Oral 490 / 490 240 / 240 Other: Urine Appearance Clear Clear Comment voided x 3 overnight, at bedside assisting with tolieting pt voiding independently in toilet; amount sufficient void x 1 in toilet Stool Size Moderate Stool Characteristics Soft Formed Brown Voiding Methods Toilet Toilet Toilet
--- NOTE | 2018-05-22 08:33 | W.PM.DS.N ---
Date of service: 05/22/18 Time of Service: 08:33 DS: Diagnosis Discharge Diagnosis (1) Arthritis of left knee: Status: Acute Discharge Plan Disposition Patient Disposition: HOME Condition: Improving Discharge Details Reason For Visit: OSTEOARTHRITIS OF LEFT KNEE Admit Date/Time: 05/19/18 08:44 Admit Provider: Cecilio Wolfe Attending Provider: Cecilio Wolfe Primary Care Provider: Segundo Casas Hospital Course Hospital Course: Patient underwent left total knee arthroplasty with on remarkable postoperative course. He was maintained on prophylactic intravenous antibiotics for 24 hours. He was started on Lovenox therapy 30 mg subcu twice daily beginning 24 hours after surgery. He had a Blount catheter for 24 hours after surgery and this was discontinued without difficulty voiding after the catheter was removed. He made rapid progress with physical therapy weightbearing as tolerated on the left with a walker. Because of his dementia he was maintained on minimal narcotics. Home Meds and New Rx's Prescriptions: No Action vitamin B comp with C no.4 [Super B Complex + C] 150 MG tablet 1 tab PO DAILY RF: 0 omega-3 fatty acids-fish oil [Fish Oil] 1 EACH capsule 1 ea PO DAILY RF: 0 memantine [Namenda XR] 7 MG capsule,sprinkle,ER 24hr 28 mg PO DAILY Qty: 60 RF: 6 naproxen sodium [Aleve] 220 MG tablet 2 tab PO BID RF: 0 losartan-hydrochlorothiazide [Hyzaar] 1 EACH tablet 1 tab PO DAILY Qty: 90 RF: 4 amlodipine 5 mg tablet 5 mg PO DAILY Qty: 90 RF: 3 vit D3-folic [id number] 2,000-800-0.32 unit-mcg-mg Tablet RF: 0 Discharge Instructions Additional Instructions: Use your new knee. You may place her full weight upon it. Use your walker for balance and to prevent falls. Continue to use the Cryo/Cuff to help control pain and swelling. Continue to elevate your left leg above heart level in order to control swelling. Performing her exercises on your own in addition to performing them with physical therapy. If you notice swelling of your calf and lower leg that is getting worse apply your elastic stockings first thing in the morning. Using baby powder will assist placing the stockings on and off. Take your usual medications as before surgery. In addition take a baby aspirin, 81 mg, twice daily to prevent blood clots for the next 2 weeks. Follow-up with physical therapy next week follow-up with Dr. Ferro back in approximately 10-14 days for progress check Care Plan Goals: Return to independent function Activity:: Activity as Tolerated Equipment/Supplies:: Walker Diet:: As Tolerated Discharge Orders Discharge Orders: Discharge Order (Routine); Ordered 05/22/18 Ordered By: Cecilio Wolfe DS: Data Vitals/I&O Vitals and I&O: Vital Signs Temperature 96.8 F L 05/22/18 07:25 Temperature Source Tympanic 05/22/18 07:25 Pulse 72 05/22/18 07:25 Pulse Rhythm Regular 05/22/18 01:30 Respiratory Rate 16 05/22/18 07:25 Respiratory Effort Non-Labored 05/22/18 01:30 Respiratory Depth Normal 05/22/18 01:30 Respiratory Pattern Normal 05/22/18 01:30 Blood Pressure 150/98 H 05/22/18 07:25 Pulse Oximetry 95 05/22/18 07:25 Oxygen Delivery Method Room Air 05/22/18 07:25 Oxygen Flow Rate 0 05/22/18 07:25 Pain Level 0 05/22/18 05:15 Comment 05/21/18 07:32 Intake & Output 05/21/18 05/21/18 05/22/18 11:59 23:59 11:59 Intake Total 490 / 490 240 / 240 Balance 490 / 490 240 / 240 Intake: Oral 490 / 490 240 / 240 Other: Urine Appearance Clear Clear Comment voided x 3 overnight, at bedside assisting with tolieting pt voiding independently in toilet; amount sufficient void x 1 in toilet Stool Size Moderate Stool Characteristics Soft Formed Brown Voiding Methods Toilet Toilet Toilet
--- NOTE | 2018-05-22 08:40 | W.PM.DS.N ---
DS: Diagnosis Discharge Diagnosis (1) Arthritis of left knee: Status: Acute Discharge Plan Disposition Patient Disposition: HOME Condition: Improving Discharge Details Reason For Visit: OSTEOARTHRITIS OF LEFT KNEE Admit Date/Time: 05/19/18 08:44 Admit Provider: Cecilio Wolfe Attending Provider: Cecilio Wolfe Primary Care Provider: Segundo Casas Hospital Course Hospital Course: Patient underwent left total knee arthroplasty with on remarkable postoperative course. He was maintained on prophylactic intravenous antibiotics for 24 hours. He was started on Lovenox therapy 30 mg subcu twice daily beginning 24 hours after surgery. He had a Blount catheter for 24 hours after surgery and this was discontinued without difficulty voiding after the catheter was removed. He made rapid progress with physical therapy weightbearing as tolerated on the left with a walker. Because of his dementia he was maintained on minimal narcotics. Home Meds and New Rx's Prescriptions: No Action vitamin B comp with C no.4 [Super B Complex + C] 150 MG tablet 1 tab PO DAILY RF: 0 omega-3 fatty acids-fish oil [Fish Oil] 1 EACH capsule 1 ea PO DAILY RF: 0 memantine [Namenda XR] 7 MG capsule,sprinkle,ER 24hr 28 mg PO DAILY Qty: 60 RF: 6 naproxen sodium [Aleve] 220 MG tablet 2 tab PO BID RF: 0 losartan-hydrochlorothiazide [Hyzaar] 1 EACH tablet 1 tab PO DAILY Qty: 90 RF: 4 amlodipine 5 mg tablet 5 mg PO DAILY Qty: 90 RF: 3 vit D3-folic [id number]-B12 2,000-800-0.32 unit-mcg-mg Tablet RF: 0 Discharge Instructions Instructions: Knee Arthroscopy (DC) Additional Instructions: Use your new knee. You may place her full weight upon it. Use your walker for balance and to prevent falls. Continue to use the Cryo/Cuff to help control pain and swelling. Continue to elevate your left leg above heart level in order to control swelling. Performing her exercises on your own in addition to performing them with physical therapy. If you notice swelling of your calf and lower leg that is getting worse apply your elastic stockings first thing in the morning. Using baby powder will assist placing the stockings on and off. Take your usual medications as before surgery. In addition take a baby aspirin, 81 mg, twice daily to prevent blood clots for the next 2 weeks. Follow-up with physical therapy next week follow-up with Dr. Ferro back in approximately 10-14 days for progress check Care Plan Goals: Return to independent function Stand Alone Forms: Nursing Discharge Form Referrals: Cecilio Wolfe MD [ [facility] STAFF PHYSICIAN] - Activity:: Activity as Tolerated Equipment/Supplies:: Walker Diet:: As Tolerated Discharge Orders Discharge Orders: Discharge Order (Routine); Ordered 05/22/18 Ordered By: Cecilio Wolfe Discharge Data Discharge Date/Time-TO BE ENTERED AT DEPARTURE: 05/22/18 10:21 DS: Data Vitals/I&O Vitals and I&O: Vital Signs Temperature 96.8 F L 05/22/18 07:25 Temperature Source Tympanic 05/22/18 07:25 Pulse 72 05/22/18 07:25 Pulse Rhythm Regular 05/22/18 01:30 Respiratory Rate 16 05/22/18 07:25 Respiratory Effort Non-Labored 05/22/18 01:30 Respiratory Depth Normal 05/22/18 01:30 Respiratory Pattern Normal 05/22/18 01:30 Blood Pressure 150/98 H 05/22/18 07:25 Pulse Oximetry 95 05/22/18 07:25 Oxygen Delivery Method Room Air 05/22/18 07:25 Oxygen Flow Rate 0 05/22/18 07:25 Pain Level 0 05/22/18 05:15 Comment 05/21/18 07:32 Intake & Output 05/21/18 05/21/18 05/22/18 11:59 23:59 11:59 Intake Total 490 / 490 240 / 240 Balance 490 / 490 240 / 240 Intake: Oral 490 / 490 240 / 240 Other: Urine Appearance Clear Clear Comment voided x 3 overnight, at bedside assisting with tolieting pt voiding independently in toilet; amount sufficient void x 1 in toilet Stool Size Moderate Stool Characteristics Soft Formed Brown Voiding Methods Toilet Toilet Toilet
--- NOTE | 2018-05-22 12:49 | PT.INTREAT ---
Date of service: 05/22/18 Time of Service: 09:25 PT Notes Inpatient Physical Therapy Treatment Note Date: 05/22/18 SUBJECTIVE: states that he is going home after his PT session. Jaylon is sitting in chair, dressed. OBJECTIVE: [] BED MOBILITY/TRANSFERS Sit-stand: SBA Stand-sit: SBA GAIT Assistive Device: FWW Weight bearing: AT Assist: SBA Distance: 250' Deviation: step through gait pattern. Reminders to not get too close to walker. THEREX: following TKA protocol. Global LE strength with focus on quads. ASSESSMENT: tolerated session well. He did have some moments of confusion, however both and myself giving him directions seemed to make his confusion a bit worse. PLAN: pt d/c to home with . Will begin out pt PT next week. TREATMENT CODE/TIME: 9:25-9:50. TPx1, TAx1. 25 min.
--- NOTE | 2018-05-22 15:05 | PDOC.CMDIS ---
- If Service Date Differs Date of service: 05/22/18 Time of Service: 15:06 LACE Index Scoring Tool - Questions: Length of Stay (in days): 4 - 6 Acuity (Admit via E.D.?): No Comorbidities: Dementia E.D. Visits: 0 - Answers: Total Score: 7 Risk of Readmission: Low Risk Care Management Discharge Reason for Hospitalization: Osteoarthritis of (L) knee Discharge Plan: Jaylon will be discharged home with his spouse today and follow up with as directed. Jaylon does not need any addtional equipment at discharge he has a cryocuff. Jaylon will have outpatient PT servces and is scheduled for next week. Orion his spouse will be transporting him home today via private car. Patient/Family Education Needs: Discharge education, limitations and follow up plan of care. CM discussed self management with patient and spouse present including ambulation, medications and follow up plan. Services Needed at Discharge: Physical Therapy
--- NOTE | 2018-05-24 08:18 | PT.INDS ---
Date of service: 05/24/18 Time of Service: 08:18 PT Notes Inpatient Physical Therapy Discharge Summary Date: 05/24/18 for 05/22/18 Dates of Service: 05/20/18-05/22/18 SUBJECTIVE: NT OBJECTIVE: 05/20/18-05/22/18 BED MOBILITY/TRANSFERS: Supine-sit: independent Sit-stand: SBA with FWW Bed-chair: SBA with FWW Stand-sit: SBA GAIT: SBA with FWW 250ft-400ft WBAT L LE STAIRS up/down 5 steps wtih railing, SBA BALANCE: Static sitting: normal Dynamic Sitting: normal Static Standing: fair Dynamic Standing: fair ASSESSMENT: Patient is a 72yr old male s/p left total knee arthroplasty 05/19/[address] Wolfe in setting of s/p right total knee arthroplasty 04/22/17, Alzheimer's disease, hard of hearing, tinnitus, C2 fracture, open reduction internal fixation L hip fracture, R ulnar plating, R Achilles tendon repair. Patient was seen for 5 PT visits, progressed from CGA standing transfers to SBA, from CGA gait with FWW 50ftx2 to SBA gait with FWW 250-400ft. Pt was discharged to home setting. GOALS Goals x1 week 1. Supine-sit: independent HOB flat 2. Sit-Supine: independent HOB flat 3. Sit-Stand: supervision with FWW 4. Stand-sit: supervision 5. Bed-chair: SBA FWW 6. Chair-bed: SBA FWW 7. Gait: SBA FWW 150ft, WBAT R LE 8. Stairs: up and down 3 steps with railing, SBA 9. I with home exercise program for TKA PT met goals # 1, 2, 5, 6, 7, 8, 9 DISCHARGE RECOMMENDATIONS home with , patient has all DME Talia Garcia PT
--- NOTE | 2018-05-24 08:22 | INDS_ITS ---
Date of service: 05/24/18 Time of Service: 08:18 PT Notes Inpatient Physical Therapy Discharge Summary Date: 05/24/18 for 05/22/18 Dates of Service: 05/20/18-05/22/18 SUBJECTIVE: NT OBJECTIVE: 05/20/18-05/22/18 BED MOBILITY/TRANSFERS: Supine-sit: independent Sit-stand: SBA with FWW Bed-chair: SBA with FWW Stand-sit: SBA GAIT: SBA with FWW 250ft-400ft WBAT L LE STAIRS up/down 5 steps wtih railing, SBA BALANCE: Static sitting: normal Dynamic Sitting: normal Static Standing: fair Dynamic Standing: fair ASSESSMENT: Patient is a 72yr old male s/p left total knee arthroplasty by Dr. Wolfe in setting of s/p right total knee arthroplasty 04/22/17, Alzheimer's disease, hard of hearing, tinnitus, C2 fracture, open reduction internal fixation L hip fracture, R ulnar plating, R Achilles tendon repair. Patient was seen for 5 PT visits, progressed from CGA standing transfers to SBA , from CGA gait with FWW 50ftx2 to SBA gait with FWW 250-400ft. Pt was discharged to home setting. GOALS Goals x1 week 1. Supine-sit: independent HOB flat 2. Sit-Supine: independent HOB flat 3. Sit-Stand: supervision with FWW 4. Stand-sit: supervision 5. Bed-chair: SBA FWW 6. Chair-bed: SBA FWW 7. Gait: SBA FWW 150ft, WBAT R LE 8. Stairs: up and down 3 steps with railing, SBA 9. I with home exercise program for TKA PT met goals # 1, 2, 5, 6, 7, 8, 9 DISCHARGE RECOMMENDATIONS home with , patient has all DME Talia Garcia PT
== END 2018-05-22 10:21 | disposition home or self-care (01) | DRG 470 ==
LOC: PDS 09:10 → MS 16:35
PROVIDERS: Admitting Provider Orthopaedic Surgery; PCP Emergency Medicine; Visit Provider Orthopaedic Surgery
PROC: 0SRD0J9 Replacement of Left Knee Joint with Synthetic Substitute, Cemented, Open Approach (ICD-10-PCS; CPT 27447; principal; 2018-05-19 10:00)
DX: M17.12 Unilateral primary osteoarthritis, left knee (principal); M21.162 Varus deformity, not elsewhere classified, left knee; Z96.652 Presence of left artificial knee joint; F03.90 Unspecified dementia, unspecified severity, without behavioral disturbance, psychotic disturbance, mood disturbance, and anxiety; Z96.651 Presence of right artificial knee joint
CPT/HCPCS: 27447; 36415; 76942; 80048; 85027; 97110; 97162; 97530; NC; 73560; J0131; J0690; J1100; J1650; J1885; J2405; J3010; L1830

== ENCOUNTER → 2018-06-14 13:47 | Outpatient (BNVA) | payer MEDICARE, SELFPAY | PROVIDERS: PCP Emergency Medicine; Referring Provider Emergency Medicine; Visit Provider Orthopaedic Surgery | DX: Z47.1 Aftercare following joint replacement surgery (principal); Z96.652 Presence of left artificial knee joint ==

== ENCOUNTER → 2018-07-29 11:00 | Outpatient (BNVA) | payer MEDICARE, SELFPAY | PROVIDERS: PCP Emergency Medicine; Referring Provider Emergency Medicine; Visit Provider Orthopaedic Surgery | DX: Z47.1 Aftercare following joint replacement surgery (principal); Z96.652 Presence of left artificial knee joint ==

== ENCOUNTER 2018-11-11 14:01 | Outpatient (CLI) | payer MEDICARE, SELFPAY ==
--- NOTE | 2018-11-11 14:19 | DI.RAD_ITS ---
SYMPTOMS/DIAGNOSIS: RIGHT KNEE PAIN RIGHT KNEE: The patient is status post TKA, the prosthesis in good position, surrounding bone intact with no interval change when compared with the postoperative images from 05/19/2018.
== END 2018-11-11 14:21 ==
PROVIDERS: PCP Emergency Medicine; Referring Provider Emergency Medicine; Visit Provider Orthopaedic Surgery
DX: Z47.1 Aftercare following joint replacement surgery (principal); Z96.651 Presence of right artificial knee joint; M25.561 Pain in right knee
CPT/HCPCS: 99211; 99212; 73560

== ENCOUNTER 2019-02-03 01:40 | Outpatient (CLI) | payer MEDICARE, SELFPAY ==
[2019-02-03 12:27] LABS: Anion Gap 10.2 mmol/L (3-11); BUN 17 mg/dL (7-18); CO2 26.8 mmol/L (21.0-32.0); CREATININE 1.02 mg/dL (0.70-1.30); Calcium 9.3 mg/dL (8.5-10.1); Calculated LDL 183 mg/dL; Chloride 106 mmol/L (98-107); Cholesterol 268 mg/dL (50-200); Glucose 94 mg/dL (70-100); HDL Cholesterol 52 mg/dL (40-60); Potassium 4.5 mmol/L (3.5-5.1); Sodium 143 mmol/L (136-145); Triglyceride 167 mg/dL (30-150)
[2019-02-04 09:16] LABS: PSA, Screening 0.7 ng/ml (0-6.5)
== END 2019-02-03 02:00 ==
PROVIDERS: PCP Emergency Medicine; Visit Provider Emergency Medicine
DX: I10 Essential (primary) hypertension (principal); I48.91 Unspecified atrial fibrillation; E78.5 Hyperlipidemia, unspecified; E03.9 Hypothyroidism, unspecified; Z12.5 Encounter for screening for malignant neoplasm of prostate
CPT/HCPCS: 36415; 80048; 80061; 83721; 84153; 84443

== ENCOUNTER 2019-02-04 02:37 | Outpatient (CLI) | payer MEDICARE, SELFPAY ==
--- NOTE | 2019-02-08 12:19 | HOLTER_ITS ---
DATE OF DICTATION: February 07, [address]: 24 hours Atrial fibrillation throughout recording. Nocturnal heart rates approximately 70-80 bpm, daytime hea rt rates approximately 90-100 bpm. Rare single PVC. No VT. No bradycardia. No symptoms. Average heart rate 86 bpm, range 66-138 bpm.
== END 2019-02-04 02:57 ==
PROVIDERS: PCP Emergency Medicine; Visit Provider Emergency Medicine
DX: I48.91 Unspecified atrial fibrillation (principal)
CPT/HCPCS: 93225

== ENCOUNTER 2019-02-07 08:22 | Outpatient (CLI) | payer MEDICARE, SELFPAY | END 2019-02-07 08:42 | PROVIDERS: PCP Emergency Medicine; Visit Provider Emergency Medicine | DX: I48.91 Unspecified atrial fibrillation (principal) | CPT/HCPCS: 93227; 93226 ==

== ENCOUNTER 2019-03-02 00:34 | Outpatient (CLI) | payer MEDICARE, SELFPAY ==
--- NOTE | 2019-03-02 10:06 | MERGE_ITS ---
*[facility]* *[facility]* [address] [place] [address] Date of study: 03/02/2019 Transthoracic Echocardiography M-mode, complete 2D, complete spectral Doppler, and color Doppler *STUDY CONCLUSIONS* Summary: 1. Left ventricle: The cavity size was normal. Wall thickness was normal. Systolic function was normal. The estimated ejection fraction was 60-65%. Wall motion was normal; there were no regional wall motion abnormalities. 2. Mitral valve: There was mild regurgitation. 3. Left atrium: The atrium was mildly dilated. 4. Right ventricle: The cavity size was at the upper limits of normal. Wall thickness was normal. Systolic function was normal. 5. Right atrium: The atrium was mildly dilated. *PATIENT PRESENTATION* Height: 177.8cm (70in ) S/D Pressure: 135 / 86 Weight: 95.3kg (209.6lb ) BSA: 2.19m^2 Test start time: 10:20 AM. Test stop time: 11:10 AM. CONSULTING Segundo Casas ORDERING Segundo Casas REFERRING Segundo Casas PERFORMING Unknown PERFORMING [facility] SALESPERSON FLOWERS RT Yousuf Ramírez)BLAS (CT) *PROCEDURE DATA* Procedure information: This study was interpreted by [facility]. Pertinent images and digital data are archived for permanent storage and are available for subsequent review. No prior study was available for comparison. Study status: Routine. Transthoracic echocardiography. M-mode, complete 2D, complete spectral Doppler, and color Doppler. A Transthoracic Echocardiogram was performed. Scanning was performed from the parasternal, apical, subcostal, and suprasternal notch acoustic windows. Images were obtained using an [id number] cardiac ultrasound machine. Image quality was adequate. Study completion: The patient tolerated the procedure well. There were no complications. History: PMH: Atrial fibrillation i48.91. *CARDIAC ANATOMY* Left ventricle: The cavity size was normal. Wall thickness was normal. Systolic function was normal. The estimated ejection fraction was 60-65%. Wall motion was normal; there were no regional wall motion abnormalities. Diastolic parameters were normal. Aortic valve: Trileaflet; normal thickness leaflets. Mobility was not restricted. Doppler: Transvalvular velocity was within the normal range. There was no stenosis. There was no significant regurgitation. VTI ratio of LVOT to aortic valve: 0.7. Valve area (VTI): 2.1cm^2. Indexed valve area (VTI): 1cm^2/m^2. Peak velocity ratio of LVOT to aortic valve: 0.71. Valve area (Vmax): 2.2cm^2. Indexed valve area (Vmax): 1cm^2/m^2. Mean velocity ratio of LVOT to aortic valve: 0.7. Valve area (Vmean): 2.1cm^2. Indexed valve area (Vmean): 1cm^2/m^2. Mean gradient (S): 3.7mm Hg. Peak gradient (S): 5.7mm Hg. Aorta: Aortic root: The aortic root was normal in size. Ascending aorta: The ascending aorta was normal in size. Mitral valve: Structurally normal valve. Mobility was not restricted. Doppler: Transvalvular velocity was within the normal range. There was no evidence for stenosis. There was mild regurgitation. Valve area by pressure half-time: 4.4cm^2. Indexed valve area by pressure half-time: 2cm^2/m^2. Peak gradient (D): 3.2mm Hg. Left atrium: The atrium was mildly dilated. Right ventricle: The cavity size was at the upper limits of normal. Wall thickness was normal. Systolic function was normal. Pulmonic valve: Structurally normal valve. Doppler: Transvalvular velocity was within the normal range. There was no evidence for stenosis. There was no significant regurgitation. Peak gradient (S): 3mm Hg. Tricuspid valve: Structurally normal valve. Doppler: Transvalvular velocity was within the normal range. There was no evidence for stenosis. There was trivial regurgitation. Pulmonary artery: Pulmonary systolic pressure was within the normal range, in the range of 25mm Hg to 30mm Hg. Right atrium: The atrium was mildly dilated. Pericardium: There was no pericardial effusion. Systemic veins: Inferior vena cava: Well visualized. The vessel was patent and normal in size. The respirophasic diameter changes were in the normal range (greater than or equal to 50%). Baseline ECG: Atrial fibrillation. Measurements Left ventricle Value Reference LV ID, ED, PLAX 4.8 cm 3.5 - 6.0 LV ID, ES, PLAX 3.3 cm 2.1 - 4.0 LV PW thickness, ED, PLAX 0.9 cm LV end-diastolic volume, 1-p A2C 80 ml LV ejection fraction, 1-p A2C 59 % LV end-diastolic volume, 1-p A4C 98 ml LV ejection fraction, 1-p A4C 61 % LV e', lateral 0.119 m/sec LV E/e', lateral 8 LV e', medial 0.105 m/sec LV E/e', medial 8 LV e', average 0.112 m/sec LV E/e', average 8 Ventricular septum Value Reference IVS thickness, ED, PLAX 1.0 cm LVOT Value Reference LVOT ID, A-P 2.0 cm LVOT area 3 cm^2 LVOT peak velocity, S 0.85 m/sec LVOT mean velocity, S 0.66 m/sec LVOT VTI, S 16.8 cm LVOT peak gradient, S 2.9 mm Hg LVOT mean gradient, S 1.9 mm Hg Stroke volume (SV), LVOT DP 51 ml Stroke index (SV/bsa), LVOT DP 23 ml/m^2 Aortic valve Value Reference Aortic valve peak velocity, S 1.2 m/sec Aortic valve mean velocity, S 0.9 m/sec Aortic valve VTI, S 24.0 cm Aortic mean gradient, S 3.7 mm Hg Aortic peak gradient, S 5.7 mm Hg VTI ratio, LVOT/AV 0.7 Aortic valve area, VTI 2.1 cm^2 Velocity ratio, peak, LVOT/AV 0.71 Aortic valve area, peak velocity 2.2 cm^2 Velocity ratio, mean, LVOT/AV 0.7 Aortic valve area, mean velocity 2.1 cm^2 Aortic valve area/bsa, mean velocity 1 cm^2/m^2 Aorta Value Reference Aortic root ID, ED 3.5 cm Ascending aorta ID, A-P, S 3.6 cm Left atrium Value Reference LA ID, A-P, ES 4.3 cm LA ID/bsa, A-P 2.0 cm/m^2 <=2.2 LA volume/bsa, ES, 1-p A4C 34 ml/m^2 LA volume, ES, 2-p 69 ml LA volume/bsa, ES, 2-p 31 ml/m^2 LA/aortic root ratio 1.22 Mitral valve Value Reference Mitral E-wave peak velocity 0.89 m/sec Mitral deceleration time 173 ms 150 - 230 Mitral pressure half-time 50 ms Mitral peak gradient, D 3.2 mm Hg Mitral valve area, PHT, DP 4.4 cm^2 Pulmonary veins Value Reference Pulmonary vein peak velocity, S 0.26 m/sec Pulmonary vein peak velocity, D 0.68 m/sec Pulmonary vein velocity ratio, peak, 0.39 S/D Tricuspid valve Value Reference Tricuspid regurg peak velocity 2.7 m/sec Tricuspid peak RV-RA gradient 28.4 mm Hg Right atrium Value Reference RA area, ES, A4C (H) 25.2 cm^2 8.3 - 19.5 Pulmonic valve Value Reference Pulmonic peak gradient, S 3 mm Hg Legend: (L) and (H) ana laura values outside specified reference range. I have personally reviewed the images and have reviewed and edited the reported findings. Electronically signed by Dieter Padilla 03/02/2019 12:50
== END 2019-03-02 00:54 ==
PROVIDERS: PCP Emergency Medicine; Visit Provider Emergency Medicine
DX: I48.91 Unspecified atrial fibrillation (principal); I34.0 Nonrheumatic mitral (valve) insufficiency
CPT/HCPCS: 93306

== ENCOUNTER 2019-03-17 01:26 | Outpatient (CLI) | payer MEDICARE, SELFPAY ==
--- NOTE | 2019-03-17 10:47 | DI.RAD_ITS ---
SYMPTOM/DIAGNOSIS: COUGH, R05 PA AND LATERAL CHEST: The heart is not enlarged. The lungs are predominantly clear with some apparent linear scarring or atelectasis at the left lung base, probably present on previous examination of 2007. No pleural effusion is seen. CONCLUSION: No evidence of acute intrapulmonary process.
== END 2019-03-17 01:46 ==
PROVIDERS: PCP Emergency Medicine; Visit Provider Emergency Medicine
DX: R05 Cough (principal)
CPT/HCPCS: 71046

== ENCOUNTER 2019-04-06 09:37 | Outpatient (CLI) | payer MEDICARE, SELFPAY | END 2019-04-06 09:57 | PROVIDERS: PCP Emergency Medicine; Visit Provider Internal Medicine Interventional Cardiology | DX: I48.91 Unspecified atrial fibrillation (principal); R06.09 Other forms of dyspnea; I10 Essential (primary) hypertension | CPT/HCPCS: 99204; 99215; 93005; 93010 ==

== ENCOUNTER 2019-04-07 08:23 | Outpatient (CLI) | payer MEDICARE, SELFPAY ==
[2019-04-07 13:01] LABS: ALT 54 U/L (16-63); AST 30 U/L (15-37); Alkaline Phosphatase 102 U/L (46-116); Bilirubin, Direct 0.12 mg/dL (0.00-0.20); Bilirubin, Total 0.6 mg/dL (0.2-1.0); NT-proBNP 231 pg/mL; Total Protein 7.2 g/dL (6.4-8.2)
[2019-04-07 13:17] LABS: Calculated LDL 139 mg/dL; Cholesterol 219 mg/dL (50-200); HDL Cholesterol 51 mg/dL (40-60); Triglyceride 149 mg/dL (30-150)
== END 2019-04-07 08:43 ==
PROVIDERS: PCP Emergency Medicine; Visit Provider Internal Medicine Interventional Cardiology
DX: R06.02 Shortness of breath (principal); I10 Essential (primary) hypertension; E78.5 Hyperlipidemia, unspecified; I48.91 Unspecified atrial fibrillation
CPT/HCPCS: 36415; 80061; 80076; 83880

== ENCOUNTER 2019-04-14 03:35 | Outpatient (CLI) | payer MEDICARE, SELFPAY ==
[2019-04-14] MEDS: Inhaler, Assist Device 1 EACH MC (11:13)
[2019-04-14] MEDS: Albuterol HFA 18 GM 200 PUFF INH IH (11:15)
== END 2019-04-14 03:55 ==
PROVIDERS: PCP Emergency Medicine; Visit Provider Internal Medicine Interventional Cardiology
DX: I48.91 Unspecified atrial fibrillation (principal); R06.02 Shortness of breath
CPT/HCPCS: 94060; 94150; 94726; 94729; 93225

== ENCOUNTER 2019-04-14 03:41 | Outpatient (CLI) | payer MEDICARE, SELFPAY ==
--- NOTE | 2019-04-18 09:23 | HOLTER_ITS ---
DATE OF DICTATION: April 18, 2019 STUDY INDICATION: Atrial fibrillation. REQUESTING PROVIDER: Not available. FINDINGS: The patient was monitored for 13 hours. Atrial fibrillation throughout. Average heart rate 96 bpm, range 73 to 128 bpm. 8 PVC's. No pauses greater than 3 seconds. No high degree heart block. No patient events. FINAL INTERPRETATION: Atrial fibrillation with overall controlled ventricular response.
--- NOTE | 2019-04-18 10:39 | PFT_ITS ---
PULMONARY FUNCTION TEST REPORT DATE OF SERVICE: April 14, 2019 REQUESTING PROVIDER: Segundo Casas D.O. Spirometry shows no evidence of obstructive airways disease, no bronchodilator response. Lung volumes show no evidence of restriction. Diffusion capacity normal. Airways resistance normal. IMPRESSION: Overall normal pulmonary function study. Clinical correlation recommended. YADIRA/wilfred D/
== END 2019-04-14 04:01 ==
PROVIDERS: PCP Emergency Medicine; Visit Provider Emergency Medicine
DX: I48.91 Unspecified atrial fibrillation (principal)

== ENCOUNTER 2019-04-15 14:42 | Outpatient (CLI) | payer MEDICARE, SELFPAY | END 2019-04-15 15:02 | PROVIDERS: PCP Emergency Medicine; Visit Provider Emergency Medicine | DX: I48.91 Unspecified atrial fibrillation (principal) | CPT/HCPCS: 93226 ==

== ENCOUNTER 2019-04-18 08:47 | Outpatient (CLI) | payer MEDICARE, SELFPAY | END 2019-04-18 09:07 | PROVIDERS: PCP Emergency Medicine; Referring Provider Emergency Medicine; Visit Provider Student in an Organized Health Care Education/Training Program | DX: I48.91 Unspecified atrial fibrillation (principal) | CPT/HCPCS: 93227 ==

== ENCOUNTER 2019-04-25 00:32 | Outpatient (CLI) | payer MEDICARE, SELFPAY ==
--- NOTE | 2019-04-25 07:20 | MERGEMPI_ITS ---
*[facility]* *[facility]* [address] [place] [address] Myocardial Perfusion Imaging - SPECT Nasra protocol Date of study: 04/25/2019 *PATIENT PRESENTATION* Height: 172.7cm (68in) Blood Pressure: Weight: 95kg (209lb) BSA: 2.17m^2 Ordering physician: Steven Sun MD Impressions: - Abnormal study after pharmacologic stress. - Low risk of cardiac events. Summary: 1. Myocardial perfusion imaging: There is a small sized, moderately intense, fixed defect involving the apical wall(s). This suggests small myocardial infarction in the distribution of the left anterior descending coronary artery versus apical thinning. 2. The calculated left ventricular ejection fraction after stress: 51%. LV global systolic function is low normal. 3. Stress ECG conclusions: The stress ECG is negative. Indication: I48.91, R06.02. History: REASON FOR TESTING: PATIENT TESTING TODAY FOR FURTHER RISK STRATIFICATION. PATIENT IS HAVING MORE DYSPNEA WITH EXERTION AND DECREASED EXERTIONAL TOLERANCE FOR THE PAST 6 MONTHS NOTED BY HIS . PATIENT DENIES CHEST PAIN UPON ARRIVAL TO TESTING TODAY. SIGNIFICANT PAST MEDICAL HISTORY: ATRIAL FIBRILLATION SINCE FEBRUARY 2019, ALZHEIMERS DISEASE. SMOKING STATUS: QUIT 1978. SMOKED FOR 10 YEARS 1 PPD. EXERCISE ROUTINE: SEDENTARY LIFESTYLE. Risk factors: Family history of coronary artery disease. Hypertension. Obesity. Dyslipidemia. Cholesterol: 219mg/dl. HDL: 51mg/dl. LDL: 139mg/dl. Triglycerides: 149mg/dl. ALLERGIES: SIMVASTATIN. MEDICATIONS: SUPER B COMPLEX DAILY, FISH OIL DAILY, MEMANTINE 28 MG DAILY, AMLODIPINE 5 MG DAILY, MELATONIN 5 MG HS PRN, RIVASTIGMINE 9.5 MG DAILY, HYDROCHLOROTHIAZIDE 25 MG DAILY, LOSARTAN 100 MG DAILY, VITAMIN D 1000 UNITS DAILY, ACETAMINOPHEN 650 MG PRN, APIXABAN 5 MG DAILY, ROSUVASTATIN 5 MG DAILY, CETIRIZINE 5 MG DAILY, METOPROLOL SUCCINATE 50 MG DAILY. Imaging Technique: Protocol: Nasra protocol. Acquisition: Gated SPECT; 1 day - rest/stress. The patient was imaged in the supine position. Attenuation correction used. Isotope administration: - Rest. Tc[99m]-sestamibi. Dose: 9.1mCi. Injection time: 11:45 AM. Injection to stress time: 00:45. - Stress. Tc[99m]-sestamibi. Dose: 27mCi. Injection time: 02:00 PM. 1-2 min before end of exercise Baseline ECG: ATRIAL FLUTTER WITH 3:1 BLOCK. HR 83 BPM. Atrial fibrillation. Stress protocol: +--------+--+ + + !Stage !HR!BP (mmHg) !Comments ! +--------+--+ + + !Baseline!83!158/86 (110)! ! +--------+--+ + + !1 min !90!152/96 (115)!Inject Regadenoson.! +--------+--+ + + !3 min !77!150/98 (115)! ! +--------+--+ + + !6 min !79!152/96 (115)! ! +--------+--+ + + * Stress results: UNABLE TO DO NASRA PROTOCOL WALKING STRESS TEST PATIENT HAS TAKEN HIS METOPROLOL SUCCINATE 50 MG THIS MORNING. STRESS TEST ENDED IN 7 MINUTES 37 SECONDS. NORMAL HEART RATE AND BLOOD PRESSURE RESPONSE TO LEXISCAN INJECTION. NO ECTOPY. NO ANGINA. NO SIGNIFICANT ST SEGMENT CHANGES. The rate-pressure product for the peak heart rate and blood pressure was 21849xx Hg/min. Stress ECG: The stress ECG is negative. Myocardial perfusion: Imaging information: gated. The image quality was good. Left ventricular size is normal. There is a small sized, moderately intense, fixed defect involving the apical wall(s). This suggests small myocardial infarction in the distribution of the left anterior descending coronary artery versus apical thinning. Ventricular Function (Wall Motion): The calculated left ventricular ejection fraction after stress: 51%. LV global systolic function is low normal. Study data: Dieter Padilla MD supervised and was readily available during the procedure. This study was interpreted by [facility]. Study status: Routine. Consent: The risks, benefits, and alternatives to the procedure were explained to the patient and informed consent was obtained. Procedure: Initial setup. A baseline ECG was recorded. Surface ECG leads and manual cuff blood pressure measurements were monitored. Heart sounds: Normal. Lung sounds: Normal. Treadmill exercise testing was performed using the Nasra protocol. Study completion: All catheters inserted during the procedure were removed. The patient tolerated the procedure well and was discharged from the lab. Discharge: The patient left the laboratory in stable condition. Birthdate: Patient birthdate: 1945. Sex: Gender: male. Study date: Study date: 04/25/2019. Study time: 00:01 AM. Signature Documentation: - The imaging portion of this study was interpreted by [employer] Dieter Padilla MD. - The Stress ECG portion of this study was interpreted by Dieter Padilla MD. Electronically signed by Dieter Padilla 04/25/2019 15:27
[2019-04-25] MEDS: Regadenoson 0.4 MG/5 ML SYR IVP (14:41)
== END 2019-04-25 00:52 ==
PROVIDERS: PCP Emergency Medicine; Visit Provider Internal Medicine Interventional Cardiology
DX: I48.91 Unspecified atrial fibrillation (principal); R06.02 Shortness of breath; R94.30 Abnormal result of cardiovascular function study, unspecified; I10 Essential (primary) hypertension; E78.5 Hyperlipidemia, unspecified; I25.2 Old myocardial infarction; Z87.891 Personal history of nicotine dependence; Z82.49 Family history of ischemic heart disease and other diseases of the circulatory system
CPT/HCPCS: 78452; 93016; 93018; 93017; J2785

== ENCOUNTER 2019-05-09 08:01 | Outpatient (CLI) | payer MEDICARE, SELFPAY | END 2019-05-09 08:21 | PROVIDERS: PCP Emergency Medicine; Visit Provider Internal Medicine Interventional Cardiology | DX: I48.91 Unspecified atrial fibrillation (principal); R06.09 Other forms of dyspnea; I10 Essential (primary) hypertension | CPT/HCPCS: 99214; 93005; 93010 ==

== ENCOUNTER 2019-06-02 07:22 | Day surgery (SDC) | payer MEDICARE, SELFPAY ==
[2019-06-02 07:52] VITALS: BP 129/83; PULSE 65; RESP 16; TEMP 36.4; O2SAT 96
[2019-06-02] MEDS: Normal Saline 1,000 ML 30 ML IV (08:12)
--- NOTE | 2019-06-02 10:16 | NUR.NOTE ---
Dr. Peacock reviewed pt's EKG taht was performed today and met with pt and his spouse to discuss results; case cancelled r/t EKG showing sinus rhythm, per MD. Pt and spouse verbalize understanding in reason for cancellation. PIV d/c'd, catheter tip intact, pt tolerated well, and then changed back into personal clothes. Pt and his spouse then escorted out of [facility]SU. Alon Smith RN
== END 2019-06-02 09:31 | disposition home or self-care (01) ==
PROVIDERS: PCP Emergency Medicine; Visit Provider Internal Medicine Cardiovascular Disease
DX: I48.91 Unspecified atrial fibrillation (principal); Z53.8 Procedure and treatment not carried out for other reasons

== ENCOUNTER 2019-06-21 09:00 | Outpatient (RCR) | payer SELFPAY ==
--- NOTE | 2019-06-14 09:00 | PR3E_ITS ---
presented to cardiac rehab on 06/14/19 with his after being referred to our maintenance program by his general practitioner, . At this time his medical history was reviewed, program introductions were made, consents were reviewed and signed, questions and concerns were answered and addressed. Medication was reviewed. Physical Exam: Lungs clear to air bilaterally, heart sounds regular, s1/s2, no murmur. Alert and oriented x3 ( reports dementia has caused the most trouble with his short term memory), BP 121/82, HR 83, height 70 in., weight 216 lbs, BMI 31. PMH: hard of hearing, bilateral knee replacements, history of left broken hip, left scapula fracture, right ruptured achilles, hypertension, hyperlipidemia, atrial fibrillation, arthritis, diverticulosis, and Alzheimer dementia. Cardiac risk factors: +family history, +male, +age >65, hypertension, hyperlipidemia, history of stress, former smoker, lack of exercise/sedentary, obesity Cardiac medications: Rosuvastatin, Metoprolol XL, Losartan, HCTZ, Amlodipine, Apixiban Exercise: After program introduction patient did do some exercise. Our plan is to assist Jaylon with setting up his equipment, assist with time management on each machine, and fill out his maintenance worksheet for him at each visit given his dementia. He was pleasant and cooperative. He tolerated 6-9 minutes on each machine (treadmill, NuStep, Stationary bike, and UBE). His heart rate ranged from 81-87 bpm w/ exercise and his blood pressures after each machine was 124-134/79-83. He had no adverse signs or symptoms during exercise and tolerated activity appropriately. We will continue to assist Jaylon while he is here and progress him as tolerated.
== END 2019-07-09 23:59 | disposition home or self-care (01) ==
LOC: CR 09:00
PROVIDERS: PCP Emergency Medicine; Visit Provider Family Medicine
DX: Z51.89 Encounter for other specified aftercare (principal)

== ENCOUNTER 2019-06-22 09:05 | Emergency (ER) | payer MEDICARE, SELFPAY ==
[2019-06-22] VITALS (25 sets, daily range): BP systolic 120–164; BP diastolic 78–120; PULSE 69–111; RESP 15–24; TEMP 37.3; O2SAT 90–96
--- NOTE | 2019-06-22 09:43 | ED.GENADUL_ITS ---
Discharge Plan Disposition Patient Disposition: HOME Condition: Improving Discharge Details Chief Complaint: GenMedical Clinical Impression: Paroxysmal A-fib Primary Care Provider: Segundo Casas ED Provider: Adolph Mitchell Home Meds and New Rx's Prescriptions: New metoprolol tartrate 50 mg tablet 100 mg PO DAILY Qty: 60 RF: 0 Continued rivastigmine [Exelon] 9.5 mg/24 hr patch 24 hour 9.5 mg TD DAILY RF: 0 melatonin 5 mg tablet 10 mg PO HS PRNRF: 0 cholecalciferol (vitamin D3) 1,000 unit capsule 1,000 unit PO DAILY RF: 0 albuterol sulfate [Ventolin HFA] 90 mcg/actuation HFA aerosol inhaler 1 - 2 puff IH Q4H PRN (Reason: shortness of breath or wheezing) Qty: 8.5 RF: 0 (DME) Aerochamber MV spacer See Dose Instructions .ROUTE .MEDSUPPLY Qty: 1 RF: 0 acetaminophen [Tylenol] 325 mg capsule 650 mg PO DAILY PRNRF: 0 Eliquis 5 mg tablet 5 mg PO BID Qty: 60 RF: 8 rosuvastatin 5 mg tablet 5 mg PO DAILY Qty: 90 RF: 3 cetirizine 5 mg tablet 5 mg PO DAILY RF: 0 Super B Complex + C 150 MG tablet 1 tab PO DAILY RF: 0 Fish Oil 1 EACH capsule 1 ea PO DAILY RF: 0 memantine [Namenda XR] 7 MG capsule,sprinkle,ER 24hr 28 mg PO DAILY Qty: 60 RF: 6 hydrochlorothiazide 25 mg tablet 25 mg PO DAILY Qty: 90 RF: 3 losartan 100 mg tablet 100 mg PO DAILY Qty: 90 RF: 3 amlodipine 10 mg tablet 10 mg PO DAILY Qty: 90 RF: 3 metoprolol succinate 50 mg tablet extended release 24 hr 75 mg PO DAILY RF: 0 Discharge Instructions Instructions: Atrial Fibrillation (ED) Additional Instructions: I have asked our care management team to arrange an outpatient follow-up for you in cardiology. As we discussed, increase her metoprolol dose to 100 mg. Return if you have increased sluggishness, low persistent heart rates, or any other concerns. Resume normal routine and activities as tolerated. Medical Decision Making 73-year-old male presents from referral of Dr. Casas. He and his note some intermittent episodes of generalized weakness, lightheadedness, mild shortness of breath that do occur with exertion while going on walks. Today at breakfast he felt somewhat unwell and did not eat. He did take his morning medications. He was seen in the outpatient office where he was generally weak and noted to decreased p.o. intake. He had a high pulse rate of approximately 100 and underwent exam including rectal exam which was reported to be equivocal. Referred to the ED. Arrives with temp 36.6, pulse 85, blood pressure 146/83, normal oxygenation. No evidence of neurologic deficits. I did perform repeat rectal exam which was negative for mass and guaiac negative. He is a recent it operations specialist revealed atrial fibrillation with rates between approximately 70 and 130. Today he is in a sinus rhythm. I am suspicious for paroxysmal atrial fibrillation with some likely irregular pulse response. Differential diagnosis would also include dehydration, anemia, electrolyte abnormalities. Finally would exclude stroke given his anticoagulation. Laboratories are reassuring here with a white count of 5, hematocrit 43, platelets 256. Chemistries with slightly elevated BUN of 21 and creatinine 1.1. These are increased over baseline and indicative of mild dehydration. Troponin is negative, LFTs reassuring, BNP noted at 553. Chest x-ray clear without infiltrate. Reviewed records including Holter monitor from April and myocardial perfusion scan from April. Discussed the patient's findings and presentation with Dr Mckinney, covering for Dr Sun. His symptoms do seem consistent with previously noted widely variable heart rate and known paroxysmal atrial fibrillation. Will increase metoprolol to 100 mg/day. We will have the patient follow-up with Dr. Casas for routine care and will ask care management to establish a follow-up with cardiology. Discussed return precautions to the ED.. CC to Dr. Casas please Lab Data Lab results reviewed: Yes I reviewed the patient's lab results. Labs: Laboratory Results - last 24 hr 06/22/19 06/22/19 06/22/19 09:18 09:18 09:18 WBC 5.99 RBC 4.61 Hgb 14.7 Hct 43.4 MCV 94.1 MCH 31.9 MCHC 33.9 RDW 11.9 Plt Count 256 MPV 10.3 Immature Gran % 0.2 Neutrophils % 64.9 Lymphocytes % 16.7 Monocytes % 16.7 Eosinophils % 1.2 Basophils % 0.3 Absolute Neutrophils 3.89 Absolute Lymphocytes 1.00 L Absolute Monocytes 1.00 H Absolute Eosinophils 0.07 Absolute Basophils 0.02 PT 10.2 INR 1.0 Sodium 139 Potassium 4.1 Chloride 103 Carbon Dioxide 25.6 Anion Gap 10.4 BUN 21 H Creatinine 1.12 Estimated GFR/1.73 m2 >= 60.00 Glucose 100 Calcium 9.0 Magnesium 1.8 Total Bilirubin 0.5 AST 29 ALT 57 Alkaline Phosphatase 110 Troponin I < 0.05 NT-Pro-B Natriuret Pep 553 H Total Protein 7.7 Albumin 4.1 Urine Color Urine Clarity Urine pH Ur Specific [place] Urine Protein Urine Ketones Urine Blood Urine Nitrite Urine Bilirubin Urine Urobilinogen Ur Leukocyte Esterase Urine RBC Urine WBC Ur Epithelial Cells Urine Crystals Urine Bacteria Urine Casts Urine Mucus Ur Culture Indicated? Urine Glucose 06/22/19 10:07 WBC RBC Hgb Hct MCV MCH MCHC RDW Plt Count MPV Immature Gran % Neutrophils % Lymphocytes % Monocytes % Eosinophils % Basophils % Absolute Neutrophils Absolute Lymphocytes Absolute Monocytes Absolute Eosinophils Absolute Basophils PT INR Sodium Potassium Chloride Carbon Dioxide Anion Gap BUN Creatinine Estimated GFR/1.73 m2 Glucose Calcium Magnesium Total Bilirubin AST ALT Alkaline Phosphatase Troponin I NT-Pro-B Natriuret Pep Total Protein Albumin Urine Color Yellow Urine Clarity Clear Urine pH 7.0 Ur Specific [place] 1.015 Urine Protein Negative Urine Ketones Negative Urine Blood Trace-intact H Urine Nitrite Negative Urine Bilirubin Negative Urine Urobilinogen 1.0 H Ur Leukocyte Esterase Negative Urine RBC 3-5 H Urine WBC 0-2 Ur Epithelial Cells Negative Urine Crystals Negative Urine Bacteria Negative Urine Casts Negative Urine Mucus Negative Ur Culture Indicated? No Urine Glucose Negative ECG Data Attestation: I personally reviewed and interpreted this ECG (s) as follows: Interpretation: Appears to be normal sinus rhythm with a rate of 97, the QRS is narrow, there is no ST segment elevation present. P waves are poorly defined. HPI General Mode of arrival: ambulatory . Date/Time Provider Initiated Documentation: 06/22/19 09:07 . Limitations to Documentation: no limitations . Information obtained by: patient . History of Present Illness 73 year old M presents to the emergency department with the chief complaint of Referred from Dr. Casas's office. Intermittent dizziness, weakness., described as moderate, Quality is described as other (Generalized), Patient reports no radiation. Patient started experiencing this minute(s) and it has been intermittent. Rest improves symptom(s), Other factors that worsen symptoms (Sometimes brought on by mild exertion) . Patient notes cough (Chronic cough), loss of appetite and weakness; denies chest pain, fever/chills, headaches, malaise, nausea/vomiting and syncope. Patient did receive the following treatments prior to arrival, other (Took morning medications) Related Data Home Medications Medication Instructions Recorded Confirmed Super B Complex + C 1 tab PO DAILY 11/02/12 06/22/19 Fish Oil 1 ea PO DAILY 06/10/13 06/22/19 memantine [Namenda XR] 28 mg PO DAILY #60 tab-cap 09/05/15 06/22/19 melatonin 5 mg tablet 10 mg PO HS PRN 10/19/18 06/22/19 rivastigmine 9.5 mg TD DAILY 10/19/18 06/22/19 hydrochlorothiazide 25 mg tablet 25 mg PO DAILY #90 tab 10/21/18 06/22/19 losartan 100 mg tablet 100 mg PO DAILY #90 tab 10/21/18 06/22/19 albuterol sulfate 90 mcg/actuation 1 - 2 puff IH Q4H PRN #8.5 gm 11/02/18 06/22/19 aerosol inhaler cholecalciferol (vitamin D3) 1,000 1,000 unit PO DAILY 11/02/18 06/22/19 unit capsule inhalational spacing device #1 each 11/02/18 06/22/19 acetaminophen 325 mg capsule 650 mg PO DAILY PRN cap 02/09/19 06/22/19 apixaban 5 mg tablet 5 mg PO BID #60 tab 02/09/19 06/22/19 rosuvastatin 5 mg tablet 5 mg PO DAILY #90 tab 02/09/19 06/22/19 cetirizine 5 mg tablet 5 mg PO DAILY 04/06/19 06/22/19 amlodipine 10 mg tablet 10 mg PO DAILY #90 tab 05/11/19 06/22/19 metoprolol succinate 75 mg PO DAILY 05/31/19 06/22/19 metoprolol tartrate 100 mg PO DAILY #60 tab 06/22/19 Previous Rx's Medication Instructions Recorded hydrochlorothiazide 25 mg tablet 25 mg PO DAILY #90 tab 10/21/18 losartan 100 mg tablet 100 mg PO DAILY #90 tab 10/21/18 albuterol sulfate 90 mcg/actuation 1 - 2 puff IH Q4H PRN #8.5 gm 11/02/18 aerosol inhaler inhalational spacing device #1 each 11/02/18 apixaban 5 mg tablet 5 mg PO BID #60 tab 02/09/19 rosuvastatin 5 mg tablet 5 mg PO DAILY #90 tab 02/09/19 amlodipine 10 mg tablet 10 mg PO DAILY #90 tab 05/11/19 metoprolol tartrate 100 mg PO DAILY #60 tab 06/22/19 Allergies Allergy/AdvReac Type Severity Reaction Status Date / Time simvastatin AdvReac JOINT PAIN Verified 06/22/19 09:19 General Stated Complaint: GenMedical FORD: 3 Review of Systems Narrative: No fall or syncope. No chest pain. Recent diagnosis of atrial fibrillation. [facility] Medical History Arm fracture (Acute) repaired by Dreisback in 2012 Atrial fibrillation (Chronic) Hyperlipidemia (Acute 11/03/12) Hypertension (Chronic) Family History Mother Personal history of malignant neoplasm COLORECTAL Father Personal history of malignant neoplasm [place] Sister No problems noted. Brother Essential hypertension Heart disease Hyperlipidemia Grandfather Personal history of malignant neoplasm Grandfather No problems noted. Grandmother No problems noted. Grandmother No problems noted. Social History Smoking/Tobacco Use Status: Former Tobacco Use Quit Date: 08/10/84 Pack-years: 10 Tobacco: How many years used: 10 Alcohol Intake: current Alcohol Intake frequency: 0-2 drinks per day Alcohol type: wine Drug use: Never Substance use type: does not use Do you feel safe at home: Yes Exam Narrative Exam Narrative: GEN: awake, alert, oriented 3. Pleasant, well groomed, interactive. HEAD: Normocephalic, atraumatic ENT: Mucous membranes moist, oropharynx unremarkable, External ear exam unremarkable EYES: PERRL, EOMI NECK: Full ROM, no SUKHDEV, no menigismus CHEST/RESP: Nontender, clear to auscultation bilateral, no wheeze/rhonchi/rales CARDIOVASCULAR: RRR, no murmur, rub leia. 2+ Rad pulse bilateral ABDOMEN: Soft, nontender, no mass. +Bowel sounds EXT: Full ROM, no edema, no rash Neuro: Grossly normal neurologic exam, conversant, interactive. Cranial nerves II through XII intact. [id number] intact. Psych: Speech fluent, thoughts congruent, affect normal Course Vital Signs Vital signs: Vital Signs Temperature 37.3 C 06/22/19 09:09 Pulse 85 06/22/19 09:09 Respiratory Rate 20 06/22/19 09:09 Blood Pressure 146/83 H 06/22/19 09:09 Pulse Oximetry 96 06/22/19 09:09 Temperature 37.3 C 06/22/19 09:09 Temperature Source Oral 06/22/19 09:09 Pulse 85 06/22/19 09:09 Respiratory Rate 20 06/22/19 09:09 Respiratory Effort 06/22/19 09:14 Blood Pressure 146/83 H 06/22/19 09:09 Pulse Oximetry 96 06/22/19 09:09 Oxygen Delivery Method Room Air 06/22/19 09:09 Oxygen Flow Rate 0 06/22/19 09:09 Pain Level 0 06/22/19 09:09
[2019-06-22] MEDS: Normal Saline Flush 10 ML SYR IVP (09:51)
[2019-06-22] MEDS: Normal Saline 1,000 ML 150 ML IV (09:51)
[2019-06-22 10:19] LABS: Abs Immature Grans 0.01 k/cumm (0.0-0.09); Absolute Basophil Count 0.02 k/cumm (0.0-0.2); Absolute Eosinophil Count 0.07 k/cumm (0.0-0.7); Absolute Neutrophil Count 3.89 k/cumm (1.2-6.7); Basophils % 0.3; Eosinophils % 1.2; HCT 43.4 % (40.0-50.0); HGB 14.7 g/dL (13.5-17.5); Immature Grans % 0.2; Lymphocytes % 16.7; Mean Corp. HGB Concentration 33.9 g/dL (32.0-36.0); Mean Corpuscular Hemoglobin 31.9 pg (27.0-33.0); Mean Corpuscular Volume 94.1 fL (80-95); Mean Platelet Volume 10.3 fL (8.0-11.0); Monocytes % 16.7; Neutrophils % 64.9; Platelet Count 256 x1000/uL (130-400); RBC 4.61 m/cumm (4.50-6.00); RBC Distribution Width 11.9 % (11.8-14.1); White Blood Cell Count 5.99 k/cumm (4.4-10.8)
--- NOTE | 2019-06-22 10:25 | DI.CT_ITS ---
EXAM: CT HEAD WO CLINICAL HISTORY: dizziness, alzheimers TECHNIQUE: Imaging Protocol: Axial computed tomography images with coronal and sagittal reformatted images were created and reviewed COMPARISON: No exams were available for comparison FINDINGS: Ventricles and Extra axial spaces: Normal in size and morphology for the patient's age. Hemorrhage: None. Cerebral parenchyma: Areas of decreased attenuation are seen in the white matter and are most consist ent with small vessel ischemic disease. Midline shift: None. Brainstem/Cerebellum: Normal. Calvarium: Normal. Visualized Paranasal sinuses/Mastoids: Clear. IMPRESSION: No acute intracranial process. The findings were discussed with the emergency department on the date of the examination. DATA REPOSITORY: All CT scans at this facility are submitted to the National Radiology Data Registry (NRDR) Dose Index Registry (DIR) with the [employer] (ACR). RADIATION OPTIMIZATION: All CT scans at this facility use at least one of these dose optimization te chniques: automated exposure control; mA and/or kV adjustment per patient size (includes targeted exa ms where dose is matched to clinical indication); or iterative reconstruction.
[2019-06-22 10:27] LABS: Bilirubin Negative (Negative); Blood Trace-intact (Negative); Clarity Clear (Clear); Glucose Negative (Negative); Ketones Negative (Negative); Leukocyte Esterase Negative (Negative); Nitrite Negative (Negative); Specific Gravity 1.015 (1.005-1.025)
[2019-06-22 10:28] LABS: Prothrombin Time 10.2 sec (9.3-11.0)
--- NOTE | 2019-06-22 10:35 | DI.RAD_ITS ---
EXAM: XR CHEST 2V PA LATERAL INDICATION: chronic cough, weakness. COMPARISON: XR CHEST 2V PA LATERAL from 03/17/2019 TECHNIQUE: 2D digital imaging was performed. FINDINGS: Heart size and pulmonary vasculature are within normal limits. No focal consolidating infiltrates are seen. No pleural effusion or pneumothorax is identified. Degenerative changes are seen in the spine. IMPRESSION: No acute pulmonary process.
[2019-06-22 10:38] LABS: ALT 57 U/L (16-63); AST 29 U/L (15-37); Albumin 4.1 g/dL (3.4-5.0); Alkaline Phosphatase 110 U/L (46-116); Anion Gap 10.4 mmol/L (3-11); BUN 21 mg/dL (7-18); Bilirubin, Total 0.5 mg/dL (0.2-1.0); CO2 25.6 mmol/L (21.0-32.0); CREATININE 1.12 mg/dL (0.70-1.30); Chloride 103 mmol/L (98-107); Glucose 100 mg/dL (70-100); Magnesium 1.8 mg/dL (1.8-2.4); NT-proBNP 553 pg/mL; Potassium 4.1 mmol/L (3.5-5.1); Sodium 139 mmol/L (136-145); Total Protein 7.7 g/dL (6.4-8.2)
[2019-06-22 10:39] LABS: Troponin I < 0.05 ng/mL (0.00-0.06)
[2019-06-22 10:46] LABS: Bacteria Negative HPF (Negative); C & S Indicated? No; Casts Negative LPF (Negative); Crystals Negative HPF (Negative); Epithelial Cells Negative HPF (Negative); Mucus Negative (Negative); WBC 0-2 HPF (0-5)
--- NOTE | 2019-06-22 12:00 | NUR.NOTE ---
Referral faxed to [facility].Nursing Note:
[2019-06-22] MEDS: Metoprolol 25 MG TAB PO (12:04)
== END 2019-06-22 12:00 | disposition home or self-care (01) ==
PROVIDERS: Emergency Provider Emergency Medicine; PCP Emergency Medicine
DX: I10 Essential (primary) hypertension (principal); I48.0 Paroxysmal atrial fibrillation
CPT/HCPCS: 36415; 80053; 93005; 96360; 96361; 96374; 96376; 99285; 70450; 71046; 81003; 81015; 83735; 83880; 84484; 85025; 85610; 93010; 99284

== ENCOUNTER 2019-06-24 08:38 | Outpatient (CLI) | payer MEDICARE, SELFPAY | END 2019-06-24 08:58 | PROVIDERS: PCP Emergency Medicine; Visit Provider Internal Medicine Cardiovascular Disease | DX: I48.91 Unspecified atrial fibrillation (principal); I25.2 Old myocardial infarction; I10 Essential (primary) hypertension; R06.09 Other forms of dyspnea; G30.9 Alzheimer's disease, unspecified; F02.80 Dementia in other diseases classified elsewhere, unspecified severity, without behavioral disturbance, psychotic disturbance, mood disturbance, and anxiety | CPT/HCPCS: 99205; 99215; 93005; 93010 ==

== ENCOUNTER 2019-06-24 09:02 | Outpatient (CLI) | payer MEDICARE, SELFPAY ==
--- NOTE | 2019-06-24 08:04 | DI.RAD_ITS ---
EXAM: XR HIP LT COMPLETE AP PELVIS INDICATION: eval L hip pain, previous frx. COMPARISON: LEFT HIP COMPLETE from 09/17/2010 TECHNIQUE: 2D digital imaging was performed. FINDINGS: In the left hip, there is moderate joint space narrowing and periarticular spurring. No acute fractu re or dislocation is present. Similar degenerative changes are seen in the right hip. The soft tiss ues are unremarkable. Atherosclerosis. IMPRESSION: Osteoarthritis of the left hip.
--- NOTE | 2019-06-24 08:05 | DI.RAD_ITS ---
EXAM: XR KNEE RT 1V INDICATION: anterior pain. COMPARISON: XR knee RT 2V AP,lat from 11/11/2018 TECHNIQUE: 2D digital imaging was performed. FINDINGS: A single sunrise view was obtained. There are postsurgical changes of a right knee replacement. The patella appears unremarkable. No fracture is identified. The soft tissues are unremarkable.
== END 2019-06-24 09:22 ==
PROVIDERS: PCP Emergency Medicine; Referring Provider Emergency Medicine; Visit Provider Student in an Organized Health Care Education/Training Program
DX: M25.552 Pain in left hip (principal); M16.12 Unilateral primary osteoarthritis, left hip; M25.561 Pain in right knee; Z96.651 Presence of right artificial knee joint; T84.84XD Pain due to internal orthopedic prosthetic devices, implants and grafts, subsequent encounter; M70.62 Trochanteric bursitis, left hip
CPT/HCPCS: 20610; 99214; 99215; 73502; 73560; 93005; 93010; J1040

== ENCOUNTER 2019-07-08 01:40 | Outpatient (CLI) | payer MEDICARE, SELFPAY ==
--- NOTE | 2019-07-08 10:30 | DI.RAD_ITS ---
EXAM: RF JOINT INJECTION FLUORO GUID CLINICAL HISTORY: PAIN, TROCHANTERIC BURSITIS LT HIP, M70.62, ARTHRITIS, M16.12 TECHNIQUE: COMPARISON: No exams were available for comparison FINDINGS: Fluoroscopy was utilized by Dr. Harvey during left hip injection. Hard copy shows intra-articular injection IMPRESSION:
--- NOTE | 2019-07-08 10:32 | W.PROCNOTE ---
Date of service: 07/08/19 Time of Service: 10:32 Procedure Note Date of procedure: 07/08/19 Procedure: Left Hip Injection with Fluoroscopic Guidance Surgeon/Proceduralist/Physician: Carlos Harvey Procedure Diagnosis: Left Hip Osteoarthritis Procedure Indications: Jaylon has had persistent pain of the LEFT hip and groin. Noninvasive measures have been tried. To serve as both diagnostic and therapeutic, an injection under fluoroscopy was recommended. I had discussed the risks of the procedure and the patient elected to proceed. Procedure Description: Jaylon was greeted in the flouroscopy room. The correct side was identified and the consent was reviewed with the patient and signed. The patient was then placed in the supine position on the fluoroscopy table. The LEFT hip was then prepped with Chloraprep. The anterolateral injection starting point was identiifed by bony landmarks and fluoroscopy. The skin and soft tissue in the tract of the injection was anesthetized with 1% Lidocaine. A spinal needle was then inserted deep into the hip joint at the level of the lateral femoral neck under fluoroscopic guidance. A small amount of Omnipaque solution was injected to confirm intraarticular placement. Once confirmed, the hip was injected with 6cc of 0.5% Bupivicaine and 80mg of Depo-Medrol. A bandaid was placed on the injection site. The patient tolerated the procedure well and noted improvement in pre-injection pain.
[2019-07-08] MEDS: Bupivacaine 0.5% Pres-Free 10 ML VIAL 6 ML IJ (10:35)
[2019-07-08] MEDS: methylPREDNISolone ACETATE 80 MG/ML VIAL IM (10:37)
[2019-07-08] MEDS: Omnipaque 300 MG/ML 10 ML BTL IJ (10:37)
== END 2019-07-08 02:00 ==
PROVIDERS: PCP Emergency Medicine; Visit Provider Student in an Organized Health Care Education/Training Program
DX: M25.552 Pain in left hip (principal); M16.12 Unilateral primary osteoarthritis, left hip; M70.62 Trochanteric bursitis, left hip
CPT/HCPCS: 20610; 77002; J1040

== ENCOUNTER → 2019-07-11 08:05 | Outpatient (BNVA) | payer MEDICARE, SELFPAY | PROVIDERS: PCP Emergency Medicine; Referring Provider Emergency Medicine; Visit Provider Student in an Organized Health Care Education/Training Program | DX: R69 Illness, unspecified (principal) ==

== ENCOUNTER → 2019-07-26 09:47 | Outpatient (BNVA) | payer MEDICARE, SELFPAY | PROVIDERS: PCP Emergency Medicine; Referring Provider Emergency Medicine; Visit Provider Internal Medicine Cardiovascular Disease | DX: I48.0 Paroxysmal atrial fibrillation (principal); I10 Essential (primary) hypertension; E78.5 Hyperlipidemia, unspecified | CPT/HCPCS: 99214 ==

== ENCOUNTER 2019-07-28 09:00 | Outpatient (RCR) | payer SELFPAY | END 2019-08-09 23:59 | disposition home or self-care (01) | LOC: CR 09:00 | PROVIDERS: PCP Emergency Medicine; Visit Provider Family Medicine | DX: Z51.89 Encounter for other specified aftercare (principal) ==

== ENCOUNTER → 2019-08-15 08:45 | Outpatient (BNVA) | payer MEDICARE, SELFPAY | PROVIDERS: PCP Emergency Medicine; Referring Provider Emergency Medicine; Visit Provider Student in an Organized Health Care Education/Training Program | DX: Z98.890 Other specified postprocedural states (principal); M16.12 Unilateral primary osteoarthritis, left hip | CPT/HCPCS: 99212 ==

== ENCOUNTER 2019-08-30 09:00 | Outpatient (RCR) | payer SELFPAY | END 2019-09-09 23:59 | disposition home or self-care (01) | LOC: CR 09:00 | PROVIDERS: PCP Emergency Medicine; Visit Provider Family Medicine | DX: Z51.89 Encounter for other specified aftercare (principal) ==

== ENCOUNTER 2019-10-04 09:00 | Outpatient (RCR) | payer SELFPAY | END 2019-10-08 23:59 | disposition home or self-care (01) | LOC: CR 09:00 | PROVIDERS: PCP Emergency Medicine; Visit Provider Family Medicine | DX: Z51.89 Encounter for other specified aftercare (principal) ==

== ENCOUNTER 2019-10-07 09:58 | Outpatient (CLI) | payer MEDICARE, SELFPAY ==
--- NOTE | 2019-10-07 10:15 | DI.RAD_ITS ---
EXAM: XR CHEST 2V PA LATERAL INDICATION: continued cough despite abx and steroids, bronchitis, J40. COMPARISON: XR CHEST 2V PA LATERAL from 03/17/2019 XR CHEST 2V PA LATERAL from 06/22/2019 TECHNIQUE: 2D digital imaging was performed. FINDINGS: Heart size is at the upper limits of normal. Linear densities are again noted at the lung bases. Th e lungs are not well inflated on the PA view. No focal area of consolidation, effusion or pulmonary edema is seen. IMPRESSION: Bibasilar scarring versus atelectasis. DATA REPOSITORY: RADIATION DOSE DELIVERED:
== END 2019-10-07 10:18 ==
PROVIDERS: PCP Emergency Medicine; Visit Provider Nurse Practitioner Family
DX: R05 Cough (principal); J40 Bronchitis, not specified as acute or chronic; Z79.2 Long term (current) use of antibiotics; Z79.52 Long term (current) use of systemic steroids
CPT/HCPCS: 71046

== ENCOUNTER 2019-10-13 11:19 | Outpatient (RCR) | payer SELFPAY | END 2019-11-08 23:59 | disposition home or self-care (01) | LOC: CR 11:19 | PROVIDERS: PCP Emergency Medicine; Visit Provider Family Medicine | DX: Z51.89 Encounter for other specified aftercare (principal) ==

== ENCOUNTER → 2019-12-20 10:03 | Outpatient (BNVA) | payer MEDICARE, SELFPAY | PROVIDERS: PCP Emergency Medicine; Referring Provider Emergency Medicine; Visit Provider Internal Medicine Cardiovascular Disease | DX: I48.91 Unspecified atrial fibrillation (principal); E78.5 Hyperlipidemia, unspecified; I10 Essential (primary) hypertension | CPT/HCPCS: 99214; 99443 ==

== ENCOUNTER 2020-05-22 11:09 | Outpatient (REF) | payer MEDICARE, SELFPAY ==
[2020-05-22 13:25] LABS: Anion Gap 10.3 mmol/L (3-11); BUN 18 mg/dL (7-18); CO2 26.7 mmol/L (21.0-32.0); Calcium 9.4 mg/dL (8.5-10.1); Chloride 102 mmol/L (98-107); Glucose 109 mg/dL (74-106); Potassium 4.3 mmol/L (3.5-5.1); Sodium 139 mmol/L (136-145)
== END 2020-05-22 11:29 ==
LOC: LBN 11:09
PROVIDERS: PCP Emergency Medicine; Visit Provider Emergency Medicine
DX: I10 Essential (primary) hypertension (principal)
CPT/HCPCS: 80048

== ENCOUNTER → 2020-06-20 11:26 | Outpatient (BNVA) | payer MEDICARE, SELFPAY | PROVIDERS: PCP Emergency Medicine; Referring Provider Emergency Medicine; Visit Provider Surgery | DX: L72.3 Sebaceous cyst (principal); L08.9 Local infection of the skin and subcutaneous tissue, unspecified; G30.9 Alzheimer's disease, unspecified; F02.80 Dementia in other diseases classified elsewhere, unspecified severity, without behavioral disturbance, psychotic disturbance, mood disturbance, and anxiety; I48.91 Unspecified atrial fibrillation; Z79.01 Long term (current) use of anticoagulants ==

== ENCOUNTER → 2020-06-25 10:27 | Outpatient (BNVA) | payer MEDICARE, SELFPAY | PROVIDERS: PCP Emergency Medicine; Referring Provider Emergency Medicine; Visit Provider Surgery | DX: L72.3 Sebaceous cyst (principal); L08.89 Other specified local infections of the skin and subcutaneous tissue; I10 Essential (primary) hypertension | CPT/HCPCS: 10060; 99211 ==

== ENCOUNTER 2020-11-20 10:03 | Outpatient (REF) | payer MEDICARE, SELFPAY ==
[2020-11-20 13:36] LABS: Anion Gap 10.6 mmol/L (3-11); BUN 21 mg/dL (7-18); CO2 25.4 mmol/L (21.0-32.0); CREATININE 1.2 mg/dL (0.70-1.30); Calculated LDL 88 mg/dL (<100); Chloride 104 mmol/L (98-107); Cholesterol 170 mg/dL (<200); Estimated GFR 59.35 (mL/min/1.73m2); Glucose 121 mg/dL (74-106); HDL Cholesterol 43 mg/dL (40-60); Potassium 4.2 mmol/L (3.5-5.1); Sodium 140 mmol/L (136-145); Triglyceride 196 mg/dL (<150)
== END 2020-11-20 10:04 | disposition home or self-care (01) ==
LOC: LBN 10:03
PROVIDERS: PCP Emergency Medicine; Visit Provider Emergency Medicine
DX: I10 Essential (primary) hypertension (principal)
CPT/HCPCS: 80048; 80061

== ENCOUNTER 2021-01-31 10:00 | Outpatient (RCR) | payer SELFPAY ==
[2021-01-08 11:11] VITALS: BP 141/92; PULSE 87
[2021-01-10 09:56] VITALS: BP 137/88; PULSE 85
[2021-01-24 10:03] VITALS: BP 136/85; PULSE 64
[2021-01-31 10:02] VITALS: BP 152/91; PULSE 67
== END 2021-02-06 23:59 | disposition home or self-care (01) ==
LOC: CR 10:00
PROVIDERS: PCP Emergency Medicine; Visit Provider Family Medicine
DX: Z51.89 Encounter for other specified aftercare (principal)

== ENCOUNTER 2021-03-10 04:06 | Outpatient (RCR) | payer SELFPAY ==
[2021-03-10 00:20] VITALS: BP 152/91; PULSE 67
== END 2021-04-09 23:59 | disposition home or self-care (01) ==
LOC: CR 04:06
PROVIDERS: PCP Emergency Medicine; Visit Provider Family Medicine

== ENCOUNTER 2021-06-06 18:19 | Outpatient (REF) | payer MEDICARE, SELFPAY ==
[2021-06-07 13:28] LABS: COVID-19 RT-PCR UVMMC Result Negative (Negative)
== END 2021-06-06 18:20 | disposition home or self-care (01) ==
LOC: NCHCN 18:19
PROVIDERS: PCP Emergency Medicine; Visit Provider Emergency Medicine
DX: Z20.822 Contact with and (suspected) exposure to COVID-19 (principal); R05.9 Cough, unspecified
CPT/HCPCS: U0003; U0005

== ENCOUNTER 2021-06-10 01:12 | Outpatient (CLI) | payer MEDICARE, SELFPAY ==
--- NOTE | 2021-06-10 06:45 | DI.RAD_ITS ---
Exam(s) XR CHEST 2V PA LATERAL EXAM: XR CHEST 2V PA LATERAL CLINICAL HISTORY: chronic cough,r05.9. TECHNIQUE: 2D digital imaging was performed. COMPARISON: CR XR CHEST 2V PA LATERAL from 10/07/2019 FINDINGS: Heart size is upper normal. The mediastinum is not widened. Right lung is clear. Minimal increased markings in the lateral left lung base are noted but have dec reased since September 2019. There possible healed rib fractures in this region. No pneumothorax. IMPRESSION: Some prove mint in the lateral left lung findings. No new infiltrates. No obvious pleural effusions . DATA REPOSITORY: RADIATION DOSE DELIVERED:
== END 2021-06-10 01:32 ==
PROVIDERS: PCP Emergency Medicine; Visit Provider Emergency Medicine
DX: R05.3 Chronic cough (principal)
CPT/HCPCS: 71046

== ENCOUNTER 2021-09-05 03:42 | Outpatient (CLI) | payer MEDICARE, SELFPAY ==
[2021-09-05 08:16] LABS: Hemoglobin A1C 5.9 % (<5.7)
[2021-09-05 09:05] LABS: Anion Gap 9.6 mmol/L (3-11); BUN 17 mg/dL (7-18); CO2 26.4 mmol/L (21.0-32.0); CREATININE 1.1 mg/dL (0.70-1.30); Calcium 9.3 mg/dL (8.5-10.1); Chloride 102 mmol/L (98-107); Glucose 106 mg/dL (74-106); Potassium 4.5 mmol/L (3.5-5.1); Sodium 138 mmol/L (136-145)
== END 2021-09-05 03:43 | disposition home or self-care (01) ==
LOC: LBO 03:43
PROVIDERS: PCP Family Medicine; Visit Provider Emergency Medicine
DX: I10 Essential (primary) hypertension (principal); E11.9 Type 2 diabetes mellitus without complications
CPT/HCPCS: 36415; 80048; 83036

== ENCOUNTER 2021-09-27 07:59 | Outpatient (RCR) | payer MEDICARE, SELFPAY ==
--- NOTE | 2021-09-27 08:30 | HOLTER_ITS ---
APPROVED REPORT Conclusion This Holter monitor was ordered for bradycardia. He was monitored for 14 hours and 32 minutes Predominant rhythm was sinus with an average heart rate of 58. Minimum was 47, maximum 92 There were occasional atrial premature beats There were rare ventricular ectopic beats There was no high-grade AV block, no atrial fibrillation, no pauses greater than 3 seconds Patient symptoms of shortness of breath while carrying wood corresponded to sinus rhythm rate of 80
== END 2021-10-07 23:59 | disposition home or self-care (01) ==
LOC: RT 07:59
PROVIDERS: PCP Family Medicine; Visit Provider Emergency Medicine
DX: R00.1 Bradycardia, unspecified (principal)
CPT/HCPCS: 93227; 93225; 93226

== ENCOUNTER 2021-09-30 01:41 | Outpatient (CLI) | payer MEDICARE, SELFPAY ==
--- NOTE | 2021-09-30 07:45 | DI.RAD_ITS ---
Exam(s) XR CHEST 2V PA LATERAL EXAM: XR CHEST 2V PA LATERAL CLINICAL HISTORY: DYSPNEA ON EXERTION, BRADYCARDIA,R06.00,R00.1. TECHNIQUE: 2D digital imaging was performed. COMPARISON: CR XR CHEST 2V PA LATERAL from 06/10/2021 FINDINGS: Heart size is upper normal. Mediastinum is not widened There is platelike atelectasis in the posterior basal segment of the right lower lobe, more evident o n the prior study. There is also platelike atelectasis now evident in the left lung base. No conflu ent infiltrates. No pleural effusions. No pneumothorax. IMPRESSION: Bibasilar platelike atelectasis, more evident than on 06/10/2021. DATA REPOSITORY: RADIATION DOSE DELIVERED:
== END 2021-09-30 02:01 ==
PROVIDERS: PCP Family Medicine; Visit Provider Emergency Medicine
DX: R06.09 Other forms of dyspnea (principal); J98.11 Atelectasis; R00.1 Bradycardia, unspecified
CPT/HCPCS: 36415; 80053; 71046; 83880; 85025

== ENCOUNTER 2021-09-30 02:53 | Outpatient (CLI) | payer MEDICARE, SELFPAY ==
[2021-09-30 13:07] LABS: Abs Immature Grans 0.02 10^3/uL (0.0-0.06); Absolute Basophil Count 0.03 10^3/uL (0.0-0.2); Absolute Eosinophil Count 0.14 10^3/uL (0.0-0.7); Absolute Lymphocyte Count 1.06 10^3/uL (1.2-3.4); Absolute Monocyte Count 0.85 10^3/uL (0.1-0.8); Absolute Neutrophil Count 3.66 10^3/uL (1.2-6.7); Basophils % 0.5; Eosinophils % 2.4; HCT 41.6 % (40.0-50.0); HGB 13.9 g/dL (13.5-17.5); Immature Grans % 0.3; Lymphocytes % 18.4; MCH 31.4 pg (27.0-33.0); MCHC 33.4 % (32.0-36.0); MCV 93.9 fL (80-95); Monocytes % 14.8; Neutrophils % 63.6; Nucleated RBC 0 %; Platelet Count 236 10^3/uL (130-400); RBC 4.43 10^6/uL (4.36-5.78); RDW 11.9 % (11.8-14.1); RDW-SD 41.6 fL; WBC 5.76 10^3/uL (4.4-10.8)
[2021-09-30 14:23] LABS: ALT 34 U/L (16-63); AST 19 U/L (15-37); Albumin 3.6 g/dL (3.4-5.0); Alkaline Phosphatase 105 U/L (46-116); Anion Gap 9.4 mmol/L (3-11); BUN 21 mg/dL (7-18); Bilirubin, Total 0.3 mg/dL (0.2-1.0); CO2 27.6 mmol/L (21.0-32.0); CREATININE 1.2 mg/dL (0.70-1.30); Chloride 101 mmol/L (98-107); Estimated GFR 59.18 (mL/min/1.73m2); Glucose 126 mg/dL (74-106); NT-proBNP 109 pg/mL (<300); Potassium 4.3 mmol/L (3.5-5.1); Sodium 138 mmol/L (136-145); Total Protein 6.6 g/dL (6.4-8.2)
== END 2021-09-30 02:54 | disposition home or self-care (01) ==
LOC: LBO 02:54
PROVIDERS: PCP Family Medicine; Visit Provider Emergency Medicine
DX: E78.5 Hyperlipidemia, unspecified (principal); R06.89 Other abnormalities of breathing; R00.1 Bradycardia, unspecified; I50.9 Heart failure, unspecified
CPT/HCPCS: 36415; 80053; 83880; 85025

== ENCOUNTER 2021-10-30 00:39 | Outpatient (CLI) | payer MEDICARE, SELFPAY ==
--- NOTE | 2021-10-30 07:30 | DI.US_ITS ---
APPROVED REPORT EXAM: Comprehensive 2D, Doppler, and color-flow Echocardiogram Patient Location: Out-Patient Rolled Ham Lacer: Kimberly Silva RDCS (AE) Indications: Dyspne on exertion, Bradycardia, CHF Other Information Study Quality: Adequate Conclusion Normal left ventricular wall thickness and chamber size. Estimated ejection fraction is 65%. Wall m otion is normal Normal right ventricular size and systolic function The left atrium is moderately dilated. The right atrium is normal in size The aortic valve is trileaflet and mildly sclerotic without stenosis or regurgitation Normal mitral valve with trace to mild regurgitation Normal tricuspid valve with trace regurgitation. Estimated right ventricular systolic pressure is 28 mmHg Mildly dilated ascending aorta measuring 3.77 cm Wall motion Left Ventricle The left ventricle is normal size. The left ventricular systolic function is normal. The left ventric ular ejection fraction is within the normal range. There is normal left ventricular wall thickness. T here is normal LV segmental wall motion. There is no ventricular septal defect visualized. LVEF is 65 %. Right Ventricle The right ventricle is normal size. The right ventricular systolic function is normal. The RVSP is 27 .9 mmHg. Atria Left atrium is moderately dilated. The right atrium size is normal. The interatrial septum is intact with no evidence for an atrial septal defect. Aortic Valve The Aortic valve is mildly sclerotic. Aortic valve is trileaflet. There is no aortic valvular stenosi s. No aortic regurgitation is present. Mitral Valve The mitral valve is normal in structure. No evidence of mitral valve stenosis. Trace to mild mitral r egurgitation. Tricuspid Valve The tricuspid valve is normal in structure. There is no tricuspid valve stenosis. Trace tricuspid reg urgitation. Pulmonic Valve The pulmonary valve is normal in structure. There is no pulmonic valvular stenosis. There is no pulmo annabel valvular regurgitation. Great Vessels The aortic root is normal in size. The ascending aorta is mildly dilated. Aortic arch is normal in ca liber. IVC is normal in size and collapses >50% with inspiration. Pericardium There is no pericardial effusion. 2D Dimensions IVSD d PLAX 0.90 cm M: 0.6-1.2 LV Vol A2C d MOD 86.4 mL LVPW d PLAX 0.90 cm M: 0.6 - 1.2 LV Vol A4C d MOD 83.5 mL LVID d PLAX 4.94 cm M: 4.2 - 5.8 LA vol/ BSA A2C s A-L 29.7 mL/m2 LVDs 3.45 cm M: 2.5 - 4.0 LA vol/ BSA A4C s A-L 27.4 mL/m2 Ao Root d 3.46 cm M: 3.1 - 3.7 LA Vol/ BSA Biplane s A-L 29.0 mL/m2 RA Area A4C 18.50 cm2 LA Area A4C s MOD 20.22 cm2 RA Vol/ BSA A4C s A-L 26.5 mL/m2 LA Area A2C s MOD 21.36 cm2 Ao Asc Diam d 3.77 cm M: 2.6 - 3.4 LV EF A4C MOD 65.6 % LV EF Teichholz 57.0 % LV EF A2C MOD 60.7 % LVEF (Luna's) 62.99 % M: 52 - 72 LV EF Biplane MOD 63.0 % LV Volume 64.73 mL M: 62 - 150 SV 55.34 mL LV Volume Index 30.67 mL/m2 M: 34 - 74 SV Index 26.21 mL/m2 LV Vol Biplane MOD 87.9 mL FS 30.00 % M-Mode TAPSE 2.34 cm (M/F) >1.7 LV Diastology MV E' medial 0.077 (>0.07 m/s) E/A Ratio 1.8 LV E/e MED 9.35 (<14) MV E Vmax 0.72 (0.4-1.3 m/s) MV E' lateral 0.112 (>0.1 m/s) MV A Vmax 0.40 (0.4-1.3 m/s) LV E/e LAT 6.35 (<14) MV E/A Ratio 1.71 MV E/E' medial 9.36 MV E/E' lateral 6.38 Aortic Valve LVOT Area 3.60 cm2 AoV Area Vmax 2.67 cm2 LVOT Vmax 1.19 m/s AoV Area/ BSA (Vmax) 1.27 cm2/m2 LVOT Mean Guicho. 0.72 m/s KHUSHBOO Mean Guicho. 2.23 cm2 LVOT Peak Grad 5.7 mmHg KHUSHBOO Mean Guicho. Index 1.06 cm2/m2 LVOT Mean Grad 2.6 mmHg LVOT VTI 0.207 m LVOT Diam s 2.10 cm AoV Vmax 1.60 m/s Velocity Ratio 0.74 AoV Mean Guicho. 1.16 m/s AoV Peak Grad 10.2 mmHg LVOT SV 74.66 mL AoV Mean Grad 6.0 mmHg AoV VTI 0.295 m AoV Area VTI 2.53 cm2 AoV Area/ BSA (VTI) 1.20 cm/m2 Mitral Valve MV DT 206 (160-240 msec) MV PHT 60 msec MV Area PHT 3.69 cm2 MV VTI 0.182 m MV Area VTI 4.10 (4.0-6.0 cm2) Pulmonary Valve PV Vmax 1.34 (0.5-1.5 m/s) RVOT Peak Gr. 2.02 mmHg PV Peak Grad 7.2 mmHg RVOT Mean Gr. 1.05 mmHg PV Mean Grad 3.8 mmHg RVOT VTI 0.122 m PV VTI 0.219 m RVOT Vmax 0.71 m/s Tricuspid Valve TR Peak Grad 24.8 mmHg TR Vmax 2.49 m/s RA Pressure 3.00 mmHg RVSP (TR) 27.9 mmHg
== END 2021-10-30 00:59 ==
PROVIDERS: PCP Family Medicine; Visit Provider Emergency Medicine
DX: I50.9 Heart failure, unspecified (principal); R00.1 Bradycardia, unspecified; R06.00 Dyspnea, unspecified
CPT/HCPCS: 93306

== ENCOUNTER → 2022-01-31 00:24 | Outpatient (CLI) | payer MEDICARE, SELFPAY ==
--- NOTE | 2022-01-31 08:00 | DI.RAD_ITS ---
Exam(s) XR CHEST 2V PA LATERAL EXAM: XR CHEST 2V PA LATERAL CLINICAL HISTORY: cough, ? aspiration,R05.9, TECHNIQUE: 2D digital imaging was performed of the chest. Two images were obtained. PA and lateral views were obtained. COMPARISON: CR XR CHEST 2V PA LATERAL from 09/30/2021 FINDINGS: MEDIASTINUM: Normal. HEART: Normal. PULMONARY VASCULATURE: Normal. LUNGS: Clear. Stable scarring or atelectasis in the lung bases. PLEURAL SPACE: No pleural effusion or pneumothorax. BONE:Within normal limits for the patient's age. OTHER FINDINGS:Normal. IMPRESSION: No acute pulmonary findings. DATA REPOSITORY: RADIATION DOSE DELIVERED:
== END ==
PROVIDERS: PCP Family Medicine; Visit Provider Family Medicine
DX: R05.8 Other specified cough (principal); R29.898 Other symptoms and signs involving the musculoskeletal system; F02.80 Dementia in other diseases classified elsewhere, unspecified severity, without behavioral disturbance, psychotic disturbance, mood disturbance, and anxiety; G31.83 Neurocognitive disorder with Lewy bodies; R91.8 Other nonspecific abnormal finding of lung field
CPT/HCPCS: 71046

== ENCOUNTER → 2022-04-10 08:55 | Outpatient (BNVA) | payer MEDICARE, SELFPAY | PROVIDERS: PCP Family Medicine; Referring Provider Family Medicine; Visit Provider Nurse Practitioner Gerontology | DX: G31.83 Neurocognitive disorder with Lewy bodies (principal); R60.0 Localized edema; N40.1 Benign prostatic hyperplasia with lower urinary tract symptoms; R35.1 Nocturia; N13.8 Other obstructive and reflux uropathy | CPT/HCPCS: 36415; 51798; 81003; 99215 ==

== ENCOUNTER 2022-04-10 14:27 | Outpatient (REF) | payer MEDICARE, SELFPAY ==
[2022-04-11 15:07] LABS: PSA, Screening 0.9 ng/mL (<=6.5)
== END 2022-04-10 14:28 | disposition home or self-care (01) ==
LOC: NCHCN 14:27
PROVIDERS: PCP Family Medicine; Visit Provider Nurse Practitioner Gerontology
DX: R35.1 Nocturia (principal); Z12.5 Encounter for screening for malignant neoplasm of prostate
CPT/HCPCS: 84153

== ENCOUNTER → 2022-07-21 10:27 | Outpatient (BNVA) | payer MEDICARE, SELFPAY | PROVIDERS: PCP Family Medicine; Referring Provider Family Medicine; Visit Provider Nurse Practitioner Gerontology | DX: N40.1 Benign prostatic hyperplasia with lower urinary tract symptoms (principal); N13.8 Other obstructive and reflux uropathy | CPT/HCPCS: 99213 ==

== ENCOUNTER → 2023-01-07 09:41 | Outpatient (BNVA) | payer MEDICARE, SELFPAY | PROVIDERS: PCP Family Medicine; Visit Provider Nurse Practitioner Gerontology | DX: N40.1 Benign prostatic hyperplasia with lower urinary tract symptoms (principal); N13.8 Other obstructive and reflux uropathy | CPT/HCPCS: 36415; 51798; 99214 ==

== ENCOUNTER 2023-01-07 10:39 | Outpatient (REF) | payer MEDICARE, SELFPAY ==
[2023-01-07 11:24] LABS: BUN 15 mg/dL (7-18); CREATININE 1.1 mg/dL (0.70-1.30); Estimated GFR 69.57 (mL/min/1.73m2)
[2023-01-07 18:30] LABS: PSA, Diagnostic 0.4 ng/mL (<=6.5)
== END 2023-01-07 10:40 | disposition home or self-care (01) ==
LOC: LBN 10:39
PROVIDERS: PCP Family Medicine; Visit Provider Nurse Practitioner Gerontology
DX: N40.1 Benign prostatic hyperplasia with lower urinary tract symptoms (principal); N13.8 Other obstructive and reflux uropathy; R33.8 Other retention of urine
CPT/HCPCS: 84520; 82565; 84153

== ENCOUNTER 2023-01-14 02:52 | Outpatient (CLI) | payer MEDICARE, SELFPAY ==
--- NOTE | 2023-01-14 08:33 | DI.US_ITS ---
Exam(s) US RENAL EXAM: US RENAL CLINICAL HISTORY: elevated PVR ? hydro, bph urinary obs/LUTS, urinary retention. TECHNIQUE: Jennings scale, color and spectral Doppler were used. COMPARISON: No priors for comparison. FINDINGS: Renal size in cm: Right: 11.3. Left: 12. Echogenicity: Normal. Hydronephrosis: No. Cyst or mass: There are simple cysts in the right kidney. They are all well circumscribed and anecho ic. The largest measures 2.3 x 2.1 x 2.3 cm. No follow-up is recommended. Nephrolithiasis: No. Other findings: None. Bladder:There is mild trabeculation of the bladder wall. No intraluminal mass is seen. Ureteral jets: Right: Visualized and unremarkable. Left: Visualized and unremarkable. Prevoid vol:529 cc Postvoid vol:The patient was unable to void during the examination. Prostate: Could not be visualized on this examination. Cc Renal color flow: Symmetric and within normal limits. IMPRESSION: 1. No evidence of nephrolithiasis or hydronephrosis. 2. The patient was unable to void during. The examination there is a large urinary bladder volume. There is also some trabeculation of the wall of the urinary bladder. This may can be seen with on ch ronic bladder outlet obstruction or neurogenic bladder. Please correlate clinically. DATA REPOSITORY:
== END 2023-01-14 03:12 ==
LOC: DI 02:52
PROVIDERS: PCP Family Medicine; Visit Provider Nurse Practitioner Gerontology
DX: N13.8 Other obstructive and reflux uropathy (principal); N40.1 Benign prostatic hyperplasia with lower urinary tract symptoms; R33.8 Other retention of urine
CPT/HCPCS: 76770

== ENCOUNTER 2023-04-21 10:50 | Outpatient (CLI) | payer MEDICARE, SELFPAY ==
[2023-04-21 12:59] LABS: Abs Immature Grans 0.02 10^3/uL (0.0-0.06); Absolute Basophil Count 0.04 10^3/uL (0.0-0.2); Absolute Eosinophil Count 0.15 10^3/uL (0.0-0.7); Absolute Lymphocyte Count 0.63 10^3/uL (1.2-3.4); Absolute Neutrophil Count 3.55 10^3/uL (1.2-6.7); Basophils % 0.8; Eosinophils % 2.9; HCT 41.9 % (40.0-50.0); HGB 14.6 g/dL (13.5-17.5); Immature Grans % 0.4; Lymphocytes % 12.1; MCH 31.1 pg (27.0-33.0); MCHC 34.8 % (32.0-36.0); MCV 89 fL (80-95); MPV 10.1 fL (8.0-11.0); Monocytes % 15.4; Neutrophils % 68.4; Platelet Count 267 10^3/uL (130-400); RBC 4.69 10^6/uL (4.36-5.78); RDW 11.9 % (11.8-14.1); RDW-SD 38.5 fL; WBC 5.19 10^3/uL (4.4-10.8)
[2023-04-21 13:12] LABS: ALT 38 U/L (16-63); AST 25 U/L (15-37); Albumin 3.9 g/dL (3.4-5.0); Alkaline Phosphatase 97 U/L (46-116); Anion Gap 8.1 mmol/L (3-11); BUN 12 mg/dL (7-18); Bilirubin, Total 0.6 mg/dL (0.2-1.0); CO2 27.9 mmol/L (21.0-32.0); Chloride 94 mmol/L (98-107); Glucose 95 mg/dL (74-106); Potassium 4.2 mmol/L (3.5-5.1); Sodium 130 mmol/L (136-145); Total Protein 7.3 g/dL (6.4-8.2)
[2023-04-21 13:33] LABS: Bilirubin Negative (Negative); Blood Trace-lysed (Negative); Clarity Clear (Clear); Glucose Negative (Negative); Ketones Negative (Negative); Leukocyte Esterase Negative (Negative); Nitrite Negative (Negative); Urobilinogen 0.2 mg/dL (Up to 0.2); pH 6.5 (5-8)
[2023-04-21 14:01] LABS: Bacteria Rare HPF (Negative); C & S Indicated? No; Casts Negative LPF (Negative); Crystals Negative HPF (Negative); Epithelial Cells Rare HPF (Negative); Mucus Negative (Negative); WBC 0-2 HPF (0-5)
== END 2023-04-21 10:51 | disposition home or self-care (01) ==
LOC: LOS 10:50
PROVIDERS: PCP Family Medicine; Visit Provider Family Medicine
DX: F02.80 Dementia in other diseases classified elsewhere, unspecified severity, without behavioral disturbance, psychotic disturbance, mood disturbance, and anxiety (principal); G31.83 Neurocognitive disorder with Lewy bodies; R30.0 Dysuria
CPT/HCPCS: 36415; 80053; 81003; 81015; 85025

== ENCOUNTER 2023-05-20 09:12 | Outpatient (CLI) | payer MEDICARE, SELFPAY ==
[2023-05-20 12:43] LABS: Anion Gap 7.5 mmol/L (3-11); BUN 16 mg/dL (7-18); CO2 25.5 mmol/L (21.0-32.0); CREATININE 1.2 mg/dL (0.70-1.30); Calcium 9.6 mg/dL (8.5-10.1); Chloride 99 mmol/L (98-107); Estimated GFR 62.67 (mL/min/1.73m2); Glucose 87 mg/dL (74-106); Potassium 4.4 mmol/L (3.5-5.1); Sodium 132 mmol/L (136-145)
== END 2023-05-20 09:13 | disposition home or self-care (01) ==
LOC: LOS 09:13
PROVIDERS: PCP Family Medicine; Referring Provider Family Medicine; Visit Provider Family Medicine
DX: E87.1 Hypo-osmolality and hyponatremia (principal)
CPT/HCPCS: 36415; 80048

== ENCOUNTER → 2023-06-09 08:00 | Outpatient (BNVA) | payer MEDICARE, SELFPAY | PROVIDERS: PCP Family Medicine; Visit Provider Nurse Practitioner Gerontology | DX: R35.0 Frequency of micturition (principal); N40.1 Benign prostatic hyperplasia with lower urinary tract symptoms; N13.8 Other obstructive and reflux uropathy | CPT/HCPCS: 99213 ==

== ENCOUNTER → 2023-12-09 11:30 | Outpatient (BNVA) | payer MEDICARE, SELFPAY | PROVIDERS: PCP Family Medicine; Visit Provider Nurse Practitioner Gerontology | DX: N40.1 Benign prostatic hyperplasia with lower urinary tract symptoms (principal); N13.8 Other obstructive and reflux uropathy | CPT/HCPCS: 99213 ==

== ENCOUNTER → 2024-07-29 13:30 | Outpatient (BNVA) | payer MEDICARE, SELFPAY | PROVIDERS: PCP Family Medicine; Referring Provider Emergency Medicine; Visit Provider Physical Therapy Assistant ==

== ENCOUNTER 2024-10-15 10:41 | Emergency (ER) | payer MEDICARE, SELFPAY ==
[2024-10-15 10:42] VITALS: BP 135/77; PULSE 56; O2SAT 96
--- NOTE | 2024-10-15 11:00 | DI.RAD_ITS ---
Exam(s) XR SHOULDER RT COMPLETE 2+V EXAM: XR SHOULDER RT COMPLETE 2+V CLINICAL HISTORY: fall right shoulder injury. TECHNIQUE: 2D digital imaging was performed. COMPARISON: No exams were available for comparison FINDINGS: 3 views No evidence of acute fracture or dislocation nor abnormal soft tissue calcifications. However, there are significant osteoarthritic degenerative changes in the glenohumeral joint with alta nt space narrowing and there is osteophyte on the inferior articular surface of the humeral head note d. Milder degenerative changes in the AC joint. Clavicle appears intact. Bone density is age-appro priate. There are no osseous lesions. IMPRESSION: No acute osseous findings in the right shoulder. Chronic degenerative osteoarthritic changes are not ed in the glenohumeral joint. DATA REPOSITORY: RADIATION DOSE DELIVERED:
--- NOTE | 2024-10-15 11:00 | DI.CT_ITS ---
Exam(s) CT HEAD CERVICAL SPINE WO EXAM: CT HEAD CERVICAL SPINE WO CLINICAL HISTORY: fall, injury on eliquis. TECHNIQUE: Imaging Protocol: Axial computed tomography images with coronal and sagittal reformatted images were created and reviewed COMPARISON: CT CT HEAD WO from 06/22/2019 FINDINGS: BRAIN: There are no skull fractures nor fluid in the visualized paranasal sinuses. There is no evidence of intracranial hemorrhage, mass effect, or shift of midline structures. There are no extra-axial fluid collections. There is no blood within the ventricular system nor within the basal cisterns. Ventricles are somewhat enlarged but probably in proportion when compared to the size of the overlyin g cortical sulci. However, the ventricles do appears slightly larger than 2019. Correlation with an y clinical signs of normal pressure hydrocephalus is recommended. CERVICAL SPINE: There is no evidence of acute fracture nor listhesis. No significant prevertebral soft tissue swelli ng. There is multilevel chronic disc space narrowing at C3-4 and C4-5 levels. Milder disc space narrowin g at C5-6 and C6-7 levels. There is multilevel facet arthropathy. There is no significant facet joint malalignment. No significant osseous lesions evident. IMPRESSION: No acute intracranial findings on this noninfused CT scan of the brain.However, this size of the vent ricles is slightly prominent compared to the size of the overlying cortical sulci and therefore the p ossibility of normal pressure hydrocephalus is to be considered, particularly if there is clinical tr iad of dementia, gait disturbance, and incontinence. No evidence of cervical spine fracture, malalignment, nor acute compromise of the cervical spinal can al. Multilevel degenerative changes. RADIATION DOSE DELIVERED: 1,353.84mGy.cm Total DLP DATA REPOSITORY: All CT scans at this facility are submitted to the National Radiology Data Registry (NRDR) Dose Index Registry (DIR) with the [employer] (ACR). RADIATION OPTIMIZATION: All CT scans at this facility use at least one of these dose optimization te chniques: automated exposure control; mA and/or kV adjustment per patient size (includes targeted exa ms where dose is matched to clinical indication); or iterative reconstruction.
--- NOTE | 2024-10-15 11:00 | DI.CT_ITS ---
Exam(s) CT CHEST WO EXAM: CT CHEST WO CLINICAL HISTORY: fall, chest injury on eliquis. TECHNIQUE: Multi planar reconstructions were performed. CONTRAST MATERIAL: None COMPARISON: No exams were available for comparison FINDINGS: CHEST: LUNGS: There is ground-glass infiltrate noted both lower lobes. Also some pleural based non ground-g lass infiltrate evident in the posterior basal segment of the right lower lobe. There are no pleural effusions. MEDIASTINUM: There is no obvious hilar nor mediastinal adenopathy. No obvious axillary adenopathy CARDIAC: Heart size minimally prominent. There is no pericardial effusion. The diameter of the asce nding thoracic aorta is enlarged, measuring 4 cm. VISUALIZED UPPER ABDOMEN: No obvious adrenal masses. No splenomegaly. OSSEOUS: No fractures evident. No significant osseous lesions.. IMPRESSION: 1. There is some mild ground-glass infiltrate in both lower lobes as well as some mild patchy infiltr ate in the posterior base again to the right lower lobe. 2. No pleural effusions. 3. No intrathoracic adenopathy. RADIATION DOSE DELIVERED: 265.28mGy.cm Total DLP DATA REPOSITORY: All CT scans at this facility are submitted to the National Radiology Data Registry (NRDR) Dose Index Registry (DIR) with the [employer] (ACR). RADIATION OPTIMIZATION: All CT scans at this facility use at least one of these dose optimization te chniques: automated exposure control; mA and/or kV adjustment per patient size (includes targeted exa ms where dose is matched to clinical indication); or iterative reconstruction.
--- NOTE | 2024-10-15 12:36 | DI.VRAD_ITS ---
PROCEDURE INFORMATION: Exam: CT Head Without Contrast Exam date and time: 10/15/2024 11:52 AM Age: 78 years old Clinical indication: Other: Fall injury on eliquis TECHNIQUE: Imaging protocol: Computed tomography of the head without contrast. Radiation optimization: All CT scans at this facility use at least one of these dose optimization techniques: automated exposure control; mA and/or kV adjustment per patient size (includes targeted exams where dose is matched to clinical indication); or iterative reconstruction. COMPARISON: CT HEAD WO 06/22/2019 10:27 AM FINDINGS: No obvious acute intracranial hemorrhage or abnormal intracranial mass effect is identified. There are motion induced artifacts. Mild diffuse atrophy is present. Associated prominence of ventricles and sulci. No midline shift. No subdural collections are seen. Imaged portions of paranasal sinuses are well-aerated. Bilateral mastoid sinuses are well aerated with the exception of a few inferior right mastoid air cells. No obvious fracture of the cranium identified. IMPRESSION: No acute intracranial hemorrhage or mass effect detected. PROCEDURE INFORMATION: Exam: CT Cervical Spine Without Contrast Exam date and time: 10/15/2024 11:52 AM Age: 78 years old Clinical indication: Other: Fall injury on eliquis TECHNIQUE: Imaging protocol: Computed tomography of the cervical spine without contrast. Radiation optimization: All CT scans at this facility use at least one of these dose optimization techniques: automated exposure control; mA and/or kV adjustment per patient size (includes targeted exams where dose is matched to clinical indication); or iterative reconstruction. COMPARISON: CT HEAD WO 06/22/2019 10:27 AM FINDINGS: No acute fracture of the cervical spine is identified. No acute traumatic subluxation is seen. Chronic multilevel cervical degenerative disc disease and facet DJD are present. Mild degenerative listhesis at multiple levels. The bones appear diffusely osteopenic. IMPRESSION: 1. No acute cervical spine fracture identified. 2. Chronic cervical spondylosis. Dictated and Authenticated by: Roosevelt De La Cruz MD. Orderin Leigh Daniel MD
--- NOTE | 2024-10-15 12:48 | DI.VRAD_ITS ---
PROCEDURE INFORMATION: Exam: CT Chest Without Contrast; Diagnostic Exam date and time: 10/15/2024 11:57 AM Age: 78 years old Clinical indication: Other: Fall, chest injury on eliquis TECHNIQUE: Imaging protocol: Diagnostic computed tomography of the chest without contrast. 3D rendering (Not supervised by radiologist): MIP and/or 3D reconstructed images were created by the technologist. Radiation optimization: All CT scans at this facility use at least one of these dose optimization techniques: automated exposure control; mA and/or kV adjustment per patient size (includes targeted exams where dose is matched to clinical indication); or iterative reconstruction. COMPARISON: CR XR CHEST 2V PA LATERAL 01/31/2022 1:06 PM FINDINGS: Lungs: There is platelike atelectasis in the lung bases. Pleural spaces: Unremarkable. No pneumothorax. No pleural effusion. Heart: Unremarkable. No cardiomegaly. No pericardial effusion. Coronary arteries: There are three-vessel coronary artery calcifications. Lymph nodes: Unremarkable. No enlarged lymph nodes. Vasculature: Unremarkable. No aortic aneurysm. Bones/joints: Unremarkable. No acute fracture. Soft tissues: Unremarkable. IMPRESSION: Basilar subsegmental atelectasis. Dictated and Authenticated by: Angela Taylor MD. Orderin Leigh Daniel MD
--- NOTE | 2024-10-15 12:49 | DI.VRAD_ITS ---
PROCEDURE INFORMATION: Exam: XR Right Shoulder Exam date and time: 10/15/2024 12:08 PM Age: 78 years old Clinical indication: Pain; Shoulder; Right; Fall TECHNIQUE: Imaging protocol: Radiologic exam of the right shoulder. Views: 2 or more views. COMPARISON: CT CHEST WO 10/15/2024 11:57 AM FINDINGS: Bones/joints: No acute fracture or dislocation. Soft tissues: Unremarkable. IMPRESSION: No acute fracture. Dictated and Authenticated by: Angela Taylor MD. Orderin Leigh Daniel MD
--- NOTE | 2024-10-15 14:05 | ED.GENADUL_ITS ---
Discharge Plan Disposition Patient Disposition: Home Condition: Stable Discharge Details Clinical Impression: Contusion of chest wall Primary Care Provider: Ena Belcher ED Provider: María Abraham Home Meds and New Rx's Prescriptions: Continued cholecalciferol (vitamin D3) 1,000 unit capsule 1,000 unit PO DAILY albuterol sulfate [Ventolin HFA] 90 mcg/actuation HFA aerosol inhaler 1 - 2 puff IH Q4H PRN (Reason: shortness of breath or wheezing) Qty: 8.5 0RF acetaminophen [Tylenol] 325 mg capsule 650 mg PO DAILY PRN carbidopa-levodopa 25-100 mg tablet 1 tab PO BID amlodipine 5 mg tablet 5 mg PO DAILY Qty: 90 3RF Eliquis 5 mg tablet 5 mg PO BID Qty: 180 3RF gabapentin 100 mg capsule 100 mg PO BID PRN (Reason: agitation) Qty: 180 2RF quetiapine [Seroquel] 25 mg tablet 50 mg PO DAILY Qty: 180 1RF ezetimibe [Zetia] 10 mg tablet 10 mg PO DAILY Qty: 90 3RF tamsulosin 0.4 mg capsule 0.8 mg PO DAILY Qty: 180 3RF metoprolol succinate 25 mg tablet extended release 24 hr 25 mg PO DAILY Qty: 90 3RF benzonatate 100 mg capsule 100 mg PO TID PRN (Reason: cough) Qty: 60 2RF losartan 100 mg tablet 100 mg PO DAILY Qty: 90 3RF memantine 28 mg capsule,sprinkle,ER 24hr 28 mg PO DAILY Qty: 90 3RF finasteride 5 mg tablet 5 mg PO DAILY Qty: 90 3RF Discharge Instructions Instructions: Acute Pain, Adult Additional Instructions: Your CAT scans today were reassuring Recommend Tylenol per package instructions and Voltaren gel as needed for discomfort Please be reevaluated next week with persistent or worsening symptoms or should any new concerns arise Referrals: Ena Belcher MD [Primary Care Provider] - 1 day HPI General Date/Time Provider Initiated Documentation: 10/15/24 10:51 . HPI Narrative: The patient is a 78-year-old male with a history of peripheral vascular disease, Alzheimer's dementia, and paroxysmal atrial fibrillation on chronic ant icoagulation. He presents following a mechanical trip and fall onto a stair yesterday. He is accompanied by his . There was no loss of consciousness, and he was able to ambulate after the event. This morning, his noticed that he was having some pain in his right shoulder, prompting their visit. He is unable to provide any additional history at this time and is at his baseline mentation per his . Related Data Home Medications ?Medication ?Instructions ?Recorded ?Confirmed albuterol sulfate 90 mcg/actuation 1 - 2 puff inhalation Q4H PRN 11/02/18 07/26/24 aerosol inhaler (Ventolin HFA) shortness of breath or wheezing #8.5 grams cholecalciferol (vitamin D3) 25 1,000 unit PO DAILY 11/02/18 07/26/24 mcg (1,000 unit) capsule acetaminophen 325 mg capsule 650 mg PO DAILY PRN 02/09/19 07/26/24 (Tylenol) carbidopa 25 mg-levodopa 100 mg 1 tab PO BID 05/06/23 07/26/24 tablet tamsulosin 0.4 mg capsule 0.8 mg (2 x 0.4 mg) PO DAILY #180 10/05/23 07/26/24 caps benzonatate 100 mg capsule 100 mg PO TID PRN cough #60 caps 03/21/24 07/26/24 metoprolol succinate 25 mg 25 mg PO DAILY #90 tabs 03/21/24 07/26/24 tablet,extended release 24 hr losartan 100 mg tablet 100 mg PO DAILY #90 tabs 07/13/24 07/26/24 amlodipine 5 mg tablet 5 mg PO DAILY #90 tabs 07/26/24 07/26/24 apixaban 5 mg tablet (Eliquis) 5 mg PO BID #180 tabs 07/26/24 07/26/24 ezetimibe 10 mg tablet (Zetia) 10 mg PO DAILY #90 tabs 07/26/24 07/26/24 gabapentin 100 mg capsule 100 mg PO BID PRN agitation #180 07/26/24 07/26/24 caps quetiapine 25 mg tablet (Seroquel) 50 mg (2 x 25 mg) PO DAILY #180 07/26/24 07/26/24 tabs memantine 28 mg capsule 28 mg PO DAILY #90 caps 08/08/24 sprinkle,extended release 24hr finasteride 5 mg tablet 5 mg PO DAILY #90 tabs 10/07/24 Previous Rx's ?Medication ?Instructions ?Recorded albuterol sulfate 90 mcg/actuation 1 - 2 puff inhalation Q4H PRN 11/02/18 aerosol inhaler (Ventolin HFA) shortness of breath or wheezing #8.5 grams tamsulosin 0.4 mg capsule 0.8 mg (2 x 0.4 mg) PO DAILY #180 10/05/23 caps benzonatate 100 mg capsule 100 mg PO TID PRN cough #60 caps 03/21/24 metoprolol succinate 25 mg 25 mg PO DAILY #90 tabs 03/21/24 tablet,extended release 24 hr losartan 100 mg tablet 100 mg PO DAILY #90 tabs 07/13/24 amlodipine 5 mg tablet 5 mg PO DAILY #90 tabs 07/26/24 apixaban 5 mg tablet (Eliquis) 5 mg PO BID #180 tabs 07/26/24 ezetimibe 10 mg tablet (Zetia) 10 mg PO DAILY #90 tabs 07/26/24 gabapentin 100 mg capsule 100 mg PO BID PRN agitation #180 07/26/24 caps quetiapine 25 mg tablet (Seroquel) 50 mg (2 x 25 mg) PO DAILY #180 07/26/24 tabs memantine 28 mg capsule 28 mg PO DAILY #90 caps 08/08/24 sprinkle,extended release 24hr finasteride 5 mg tablet 5 mg PO DAILY #90 tabs 10/07/24 Allergies Allergy/AdvReac Type Severity Reaction Status Date / Time simvastatin AdvReac JOINT PAIN Verified 07/26/24 11:47 General Stated Complaint: Orthopedic FORD: 3 Exam Narrative Exam Narrative: General Appearance: The patient is alert. Vital signs: Within normal limits. HEENT: No visible sign of head trauma and no ecchymosis noted. Respiratory: Within normal limits. Gastrointestinal: No abdominal tenderness or bruising appreciated. Back, Musculoskeletal: The patient is tender in the right clavicular and right shoulder region. Extremities: No visible sign of lower extremity trauma. Skin: Warm and dry, no rash. Neurological: Normal. Course Vital Signs Vital signs: Vital Signs Pulse 56 L 10/15/24 10:42 Blood Pressure 135/77 10/15/24 10:42 Pulse Oximetry 96 10/15/24 10:42 Pulse 56 L 10/15/24 10:42 Blood Pressure 135/77 10/15/24 10:42 Blood Pressure Position Sitting 10/15/24 10:42 Pulse Oximetry 96 10/15/24 10:42 Oxygen Delivery Method Room Air 10/15/24 10:42 Oxygen Flow Rate 0 10/15/24 10:42 Comment Patient has Alzheimer's 10/15/24 10:42 Medical Decision Making Initial Assessment: 78-year-old male with history of peripheral vascular disease, Alzheimer's, dementia, paroxysmal atrial fibrillation on chronic anticoagulation, presents with mechanical trip and fall yesterday onto a stair. No loss of consciousness. Able to ambulate after the event. This morning, noticed pain in right shoulder. Unable to give additional history, at baseline mentation per . Alert, no visible sign of trauma. Tender in right clavicular and right shoulder region. No visible sign of head trauma, no ecchymosis noted, no abdominal tenderness or bruising appreciated, no visible sign of lower extremity trauma. Results: CT head, cervical spine, chest, and right shoulder x-ray per radiology interpretation my review are negative for acute abnormality ED Course: - Ordered CT head, cervical spine, and chest to rule out fractures or internal injuries. Final Assessment: Patient presents with post-fall status. CT scans ordered to rule out fractures or internal injuries. No visible signs of trauma except tenderness in right clavicular and shoulder region. Patient remained stable, he is not expressed any complaints during his stay and at his baseline mentation encouraged Tylenol and Voltaren gel at home Return precautions reviewed and patient's and DPOA expressed understanding Clinical Impression: - Post-fall status MDM Components Evaluation: - Number of Differential Diagnoses or Management Options: Post-fall status - Amount and Complexity of Data Reviewed: CT head, cervical spine, and chest ordered - Risk of Complication and Morbidity or Mortality: Moderate due to history of peripheral vascular disease, Alzheimer's, dementia, paroxysmal atrial fibrillation on chronic anticoagulation. Quality:SDOH Health Related Social Needs: No Data to Display PFSH All Active Problems (Updated 10/15/24 @ 13:31 by SULAIMAN Jacobo) Contusion of chest wall (Acute) Peripheral vascular disease (Chronic) Patient has active durable power of litigation attorney associate (DPOA) designee for healthcare (Acute) Sciatica, right side (Acute) BPH w urinary obs/LUTS (Acute) Chronic cough (Chronic) evaluated by speech therapy - diet modifications. 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 Brother Essential hypertension Heart disease Hyperlipidemia Grandfather Personal history of malignant neoplasm Grandfather No problems noted. Grandmother No problems noted. Grandmother No problems noted. 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 Current gender identity: male What type of physical activity do you participate in: walking and additional Details: thinking about seeing about getting Jaylon into boxing. Not walking much Do you feel safe at home: Yes
== END 2024-10-15 13:56 | disposition home or self-care (01) ==
PROVIDERS: Emergency Provider Physician Assistant; PCP Family Medicine
DX: S20.211A Contusion of right front wall of thorax, initial encounter (principal); I73.9 Peripheral vascular disease, unspecified; I10 Essential (primary) hypertension; I48.0 Paroxysmal atrial fibrillation; G30.9 Alzheimer's disease, unspecified; F02.80 Dementia in other diseases classified elsewhere, unspecified severity, without behavioral disturbance, psychotic disturbance, mood disturbance, and anxiety; Z79.01 Long term (current) use of anticoagulants; W18.39XA Other fall on same level, initial encounter; Y93.01 Activity, walking, marching and hiking; Y92.018 Other place in single-family (private) house as the place of occurrence of the external cause
CPT/HCPCS: 71250; 99285; 70450; 72125; 73030; 99284

== ENCOUNTER 2024-11-21 06:46 | Emergency (ER) | payer MEDICARE, SELFPAY ==
[2024-11-21] VITALS (16 sets, daily range): BP systolic 129–158; BP diastolic 60–104; PULSE 51–72; RESP 12–21; TEMP 37; O2SAT 90–98
--- NOTE | 2024-11-21 06:45 | DI.CT_ITS ---
Exam(s) CT HEAD CERV SPINE FACIAL WO EXAM: CT HEAD CERV SPINE FACIAL WO CLINICAL HISTORY: Fall, on Eliquis, seizure?. TECHNIQUE: Imaging Protocol: Axial computed tomography images with coronal and sagittal reformatted images were created and reviewed COMPARISON: CT CT HEAD CERVICAL SPINE WO from 10/15/2024 FINDINGS: CT BRAIN: There are no skull fractures nor fluid in the visualized paranasal sinuses. There is no evidence of intracranial hemorrhage, mass effect, or shift of midline structures. There are no extra-axial fluid collections. There no blood within the ventricular system nor within the ba ellie cisterns. Ventricles are again noted be slightly prominent but unchanged from 10/15/2024. Probably commensurat e with size of the overlying cortical sulci. CT MAXILLOFACIAL BONES: There is no evidence of facial fractures nor fluid in the visualized paranasal sinuses. there is no evidence of orbital blowout fracture. CT CERVICAL SPINE: There is no evidence of fracture nor listhesis. No significant prevertebral soft tissue swelling. M ultilevel chronic disc space narrowing, most prominent at the C 4-5 level. There is some 0 bilateral facet arthropathy. No facet malalignment evident. No significant osseous lesions evident. IMPRESSION: No acute intracranial findings on this noninfused CT scan of the brain.As previously described on dahlia or report possible concern for normal pressure hydrocephalus is to be considered if there is clinical triad of dementia, gait disturbance, and incontinence. No evidence of facial nor orbital blowout fractures. No evidence of cervical spine fracture, malalignment, nor acute compromise of the cervical spinal can al. Chronic degenerative changes as described above. RADIATION DOSE DELIVERED: 2,088.56mGy.cm Total DLP DATA REPOSITORY: All CT scans at this facility are submitted to the National Radiology Data Registry (NRDR) Dose Index Registry (DIR) with the [employer] (ACR). RADIATION OPTIMIZATION: All CT scans at this facility use at least one of these dose optimization te chniques: automated exposure control; mA and/or kV adjustment per patient size (includes targeted exa ms where dose is matched to clinical indication); or iterative reconstruction.
--- NOTE | 2024-11-21 06:58 | W.ED.GENAD ---
Discharge Plan Discharge Details Chief Complaint: Fall/Non TraumaCriteria Clinical Impression: Alzheimer disease, Fall Primary Care Provider: Ena Belcher ED Provider: Carlos Glez Home Meds and New Rx's Prescriptions: No Action cholecalciferol (vitamin D3) 1,000 unit capsule 1,000 unit PO DAILY albuterol sulfate [Ventolin HFA] 90 mcg/actuation HFA aerosol inhaler 1 - 2 puff IH Q4H PRN (Reason: shortness of breath or wheezing) Qty: 8.5 0RF acetaminophen [Tylenol] 325 mg capsule 650 mg PO DAILY PRN carbidopa-levodopa 25-100 mg tablet 1 tab PO BID Eliquis 5 mg tablet 5 mg PO BID Qty: 180 3RF gabapentin 100 mg capsule 100 mg PO BID PRN (Reason: agitation) Qty: 180 2RF quetiapine [Seroquel] 25 mg tablet 50 mg PO DAILY Qty: 180 1RF ezetimibe [Zetia] 10 mg tablet 10 mg PO DAILY Qty: 90 3RF amlodipine 5 mg tablet 5 mg PO DAILY Qty: 90 3RF tamsulosin 0.4 mg capsule 0.8 mg PO DAILY Qty: 180 3RF metoprolol succinate 25 mg tablet extended release 24 hr 25 mg PO DAILY Qty: 90 3RF benzonatate 100 mg capsule 100 mg PO TID PRN (Reason: cough) Qty: 60 2RF losartan 100 mg tablet 100 mg PO DAILY Qty: 90 3RF finasteride 5 mg tablet 5 mg PO DAILY Qty: 90 3RF HPI General Date/Time Provider Initiated Documentation: 11/21/24 06:53. HPI Narrative: This is a 78-year-old male with a past medical history of Lewy body dementia/severe Alzheimer's dementia, atrial fibrillation on apixaban, high cholesterol, hypertension, who lives with his , who at baseline does not normally answer questions, presents today after a fall. states that he fell, hit his head, and then had some seizure-like movements for brief episode. He has no history of seizures. He did not urinate on himself or defecate. EMS was called and he was brought in for further assessment. EMS and patient are not able to provide any additional history. Blood sugar was normal. Patient has no complaints. Related Data Home Medications ?Medication ?Instructions ?Recorded ?Confirmed albuterol sulfate 90 mcg/actuation 1 - 2 puff inhalation Q4H PRN 11/02/18 11/21/24 aerosol inhaler (Ventolin HFA) shortness of breath or wheezing #8.5 grams cholecalciferol (vitamin D3) 25 1,000 unit PO DAILY 11/02/18 11/21/24 mcg (1,000 unit) capsule acetaminophen 325 mg capsule 650 mg PO DAILY PRN 02/09/19 11/21/24 (Tylenol) carbidopa 25 mg-levodopa 100 mg 1 tab PO BID 05/06/23 11/21/24 tablet tamsulosin 0.4 mg capsule 0.8 mg (2 x 0.4 mg) PO DAILY #180 10/05/23 11/21/24 caps benzonatate 100 mg capsule 100 mg PO TID PRN cough #60 caps 03/21/24 11/21/24 metoprolol succinate 25 mg 25 mg PO DAILY #90 tabs 03/21/24 11/21/24 tablet,extended release 24 hr losartan 100 mg tablet 100 mg PO DAILY #90 tabs 07/13/24 11/21/24 apixaban 5 mg tablet (Eliquis) 5 mg PO BID #180 tabs 07/26/24 11/21/24 ezetimibe 10 mg tablet (Zetia) 10 mg PO DAILY #90 tabs 07/26/24 11/21/24 gabapentin 100 mg capsule 100 mg PO BID PRN agitation #180 07/26/24 11/21/24 caps quetiapine 25 mg tablet (Seroquel) 50 mg (2 x 25 mg) PO DAILY #180 07/26/24 11/21/24 tabs finasteride 5 mg tablet 5 mg PO DAILY #90 tabs 10/07/24 11/21/24 amlodipine 5 mg tablet 5 mg PO DAILY #90 tabs 10/24/24 11/21/24 Previous Rx's ?Medication ?Instructions ?Recorded albuterol sulfate 90 mcg/actuation 1 - 2 puff inhalation Q4H PRN 11/02/18 aerosol inhaler (Ventolin HFA) shortness of breath or wheezing #8.5 grams tamsulosin 0.4 mg capsule 0.8 mg (2 x 0.4 mg) PO DAILY #180 10/05/23 caps benzonatate 100 mg capsule 100 mg PO TID PRN cough #60 caps 03/21/24 metoprolol succinate 25 mg 25 mg PO DAILY #90 tabs 03/21/24 tablet,extended release 24 hr losartan 100 mg tablet 100 mg PO DAILY #90 tabs 07/13/24 apixaban 5 mg tablet (Eliquis) 5 mg PO BID #180 tabs 07/26/24 ezetimibe 10 mg tablet (Zetia) 10 mg PO DAILY #90 tabs 07/26/24 gabapentin 100 mg capsule 100 mg PO BID PRN agitation #180 07/26/24 caps quetiapine 25 mg tablet (Seroquel) 50 mg (2 x 25 mg) PO DAILY #180 07/26/24 tabs finasteride 5 mg tablet 5 mg PO DAILY #90 tabs 10/07/24 amlodipine 5 mg tablet 5 mg PO DAILY #90 tabs 10/24/24 Allergies Allergy/AdvReac Type Severity Reaction Status Date / Time simvastatin AdvReac JOINT PAIN Verified 11/21/24 07:42 General FORD: 3 Exam Narrative Exam Narrative: 1.Const: Well-nourished, Well-developed, appearing stated age 2.Eyes: PERRL, no conjunctival injection, and symmetrical lids. 3.ENT: Atraumatic external nose and ears. Moist MM. Neck: Symmetric, trachea midline, No thyromegaly. There is no evidence of raccoon eyes, pete sign, CSF rhinorrhea, mastoid tenderness, cranial crepitus, hemotympanum, exophthalmos, or hyphema. Patient demonstrates intact dentition with no signs of tooth avulsion or fracture, no signs of jaw deformity, no evidence of a LeFort's fracture, with an intact palate, nose and orbital region. There is no evidence of a nasal septal hematoma. No proptosis. Jaw closes symmetrically. Airway is clear. 4.CVS: +S1/S2, Peripheral pulses 2+ and equal in all extremities. Brisk capillary refill in all extremities. 5.RESP: Unlabored respiratory effort. Clear to auscultation bilaterally. No wheezes rales or rhonchi 6.GI: Soft, Nontender/Nondistended, No hepatosplenomegaly. No guarding or rebound. 7.MSK: Normocephalic/Atraumatic, Extremities w/o deformity or ttp No cyanosis or clubbing, Normal movement of all extremities. No focal tenderness in the patient's upper and lower extremities on palpation. Pelvis is stable. No focal tenderness on palpation of the spine cervical thoracic or lumbar spine. 8.Skin: Warm, Dry. No rashes or lesions. 9.Neuro: family resource management professor II-XII grossly intact. Sensation grossly intact, no focal neurologic deficits. 10.Psych: (AAO) x0, GCS of 14 Medical Decision Making This is a 78-year-old male with a past medical history of Lewy body dementia/severe Alzheimer's dementia, atrial fibrillation on apixaban, high cholesterol, hypertension, who lives with his , who at baseline does not normally answer questions, presents today after a fall. states that he fell, hit his head, and then had some seizure-like movements for brief episode. He has no history of seizures. He did not urinate on himself or defecate. EMS was called and he was brought in for further assessment. EMS and patient are not able to provide any additional history. Blood sugar was normal. Patient has no complaints. Exam demonstrates no focal traumatic component of the head neck chest abdomen or pelvis. I am not able to get any straight answers from the patient's secondary to his severe Alzheimer's. He does not have any focal pain or tenderness on palpation of those areas. However because of the patient's mechanism and age and limited history we will get CT imaging of the head neck chest abdomen pelvis to evaluate for traumatic component. He does have a risk of intracranial hemorrhage secondary to his blood thinner use and striking his head. The seizure movements per history are certainly odd and atypical, may have been a epileptiform syncope, but an actual seizure is certainly of concern. Without any history of seizures I feel likelihood is low for the potential for a normal seizure however pathology inducing seizure certainly is of concern. Will evaluate for these etiologies monitor closely and reassess. 7:48 AM Discussed the case with the , she states that he did fall back and hit his head and had some movements for about a minute or so but there was no tonic-clonic episode after that. Immediately after those movements stopped he was able to try and get up, and was moving again with no postictal phase. Still pending imaging results. Patient will be signed out to my colleague Dr. De La Vega for follow-up on imaging and labs. Quality:SDTX Health Related Social Needs: No Data to Display PFSH All Active Problems (Updated 11/21/24 @ 07:49 by Carlos Glez DO) Fall (Acute) Peripheral vascular disease (Chronic) Patient has active durable power of patent prosecution attorney (DPOA) designee for healthcare (Acute) Sciatica, right side (Acute) BPH w urinary obs/LUTS (Acute) Chronic cough (Chronic) evaluated by speech therapy - diet modifications. 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 Brother Essential hypertension Heart disease Hyperlipidemia Grandfather Personal history of malignant neoplasm Grandfather No problems noted. Grandmother No problems noted. Grandmother No problems noted. 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 Current gender identity: male What type of physical activity do you participate in: walking and additional Details: thinking about seeing about getting Jaylon into boxing. Not walking much
--- NOTE | 2024-11-21 07:00 | DI.CT_ITS ---
Exam(s) CT CHEST/ABD/PEL WO EXAM: CT CHEST/ABD/PEL WO CLINICAL HISTORY: fall, eval for trauma, severe dementia. TECHNIQUE: Imaging Protocol: Axial computed tomography images with coronal and sagittal reformatted images were created and reviewed CONTRAST MATERIAL: Intravenous: none Oral: None COMPARISON: CT CT CHEST WO from 10/15/2024 FINDINGS: CHEST: LUNGS: There are mild symmetrical increased markings in both dependent lower lobes introitus pleural based infiltrate in the posterior basal segments of both lower lobes, medially. This is slightly mor e prominent on the right side. There are no associated pleural effusions. No obvious lung contusion s. No pneumothorax.. MEDIASTINUM: No evidence of sternal fracture. However, there is a comminuted fracture of the medial aspect of the right clavicle adjacent to these sternoclavicular joint. Left clavicle appears intact. Sternum appears intact. No obvious rib fractures evident. CARDIAC: Mild cardiomegaly. No pericardial effusion.Diameter of the ascending thoracic aorta is enla rged, measuring 4 cm. OSSEOUS: In addition to the medial right clavicle fracture there is a fracture of T6 vertebral body w hich may not be acute. Approximately 20 percent height loss. Mild retropulsed posterior cortex but without prominent spinal canal stenosis at this level. There is also a chronic appearing compression fracture of L2 vertebral body, also with approximately 20 percent height loss. There are advanced d egenerative changes in both shoulder glenohumeral joints. ABDOMEN: There is no ascites. No evidence of mesenteric nor bowel wall hematomas. LIVER: No evidence of laceration. No obvious lesions. GALLBLADDER/BILIARY: There are multiple small calculi along the dependent wall the gallbladder. The gallbladder is not edematous and there is no pericholecystic fluid. No radiopaque calculi seen in th e nondilated CBD. PANCREAS: No evidence of obvious pancreatic mass nor dilatation of the pancreatic duct. SPLEEN: Spleen is not enlarged. No obvious intrasplenic lesions. ADRENALS: There are no significant adrenal masses. KIDNEYS: Left kidney unremarkable. There is a benign cyst in the posterior cortex of the right kidne y which measures 2.4 x 2.5 cm. Does not require further imaging workup. There are no solid renal ma sses nor calculi nor hydronephrosis. ABDOMINAL AORTA: Abdominal aorta is not enlarged. LYMPH NODES: There is no retroperitoneal nor para-aortic adenopathy. ABDOMINAL WALL/GI: There is a midline fat only containing umbilical hernia. No other hernias. No ab normal subcutaneous bruising nor fluid collections. No evidence of bowel obstruction. PELVIS: LYMPH NODES: There is no intrapelvic nor inguinal adenopathy. GI: No evidence of appendicitis.No evidence of sigmoid diverticulitis. URINARY BLADDER: Relatively uniform thickening of the bladder wall. Pelvic ureters are not dilated. REPRODUCTIVE: Prostate size upper normal. Seminal vesicles unremarkable. OSSEOUS: No pelvic nor hip fractures. No sacral fractures. Chronic L2 compression fracture. IMPRESSION: 1. There is a comminuted fracture of the medial aspect of the right clavicle at the level of the ster noclavicular joint. Mild displacement. Opposite-left clavicle appears unremarkable. 2. T6 vertebra compression fracture, approximately 20 percent. Age indeterminate 3. L2 compression fracture; chronic. Cholelithiasis incidentally noted. No evidence of acute cholecystitis nor dilatation of the biliary tree. RADIATION DOSE DELIVERED: 1,334.98mGy.cm Total DLP DATA REPOSITORY: All CT scans at this facility are submitted to the National Radiology Data Registry (NRDR) Dose Index Registry (DIR) with the [employer] (A[employer]). RADIATION OPTIMIZATION: All CT scans at this facility use at least one of these dose optimization te chniques: automated exposure control; mA and/or kV adjustment per patient size (includes targeted exa ms where dose is matched to clinical indication); or iterative reconstruction.
--- NOTE | 2024-11-21 07:00 | DI.CT_ITS ---
Exam(s) CT THORACIC LUMBAR SPINE WO EXAM: CT THORACIC LUMBAR SPINE WO CLINICAL HISTORY: fall, severe dementia. TECHNIQUE: Imaging Protocol: Axial computed tomography images with coronal and sagittal reformatted images were created and reviewed. CONTRAST MATERIAL: Intravenous: Omnipaque 350 Contrast volume:structured data in ml Contrast route:I V - Oral: yes / no COMPARISON: CT CT CHEST/ABD/PEL WO from 11/21/2024 FINDINGS: THORACIC SPINAL COLUMN: There is a compression fracture of T5 with approximately 30 percent height lo ss. Mild retropulsion of the posterior inferior cortex at this level, proximally 3 mm but not associ ated with prominent narrowing of the spinal canal at this level. No facet malalignment at this level . No other vertebral fractures evident. LUMBOSACRAL SPINAL COLUMN: Chronic appearing compression fracture of L2 vertebral body superior endpl ate on left of center, with approximately 20 percent height loss. There is posterior osteophytic rid ging at this level extending posteriorly 4 mm. No prominent spinal canal stenosis at this level. M ild canal stenosis seen at other levels. No additional fractures evident. Multilevel facet arthropa thy. Bridging osteophyte noted anteriorly between L1 and L2. There is posterior osteophytic ridging at this level. Soft tissues: No obvious prominent disc herniations. Mild infiltrates are noted in the partially vis ualized bilateral lungs, most prominent in the posterior basal segments of both lower lobes. No obvi ous pleural effusions. IMPRESSION: T5 compression fracture with mild retropulsion; age indeterminate. No significant central canal narr owing. Clinically indicated follow-up MRI can be performed. L2 compression fracture superior endplate left of center which appears chronic. RADIATION DOSE DELIVERED: 1,334.98mGy.cm Total DLP DATA REPOSITORY: All CT scans at this facility are submitted to the National Radiology Data Registry (NRDR) Dose Index Registry (DIR) with the [employer] (ACR). RADIATION OPTIMIZATION: All CT scans at this facility use at least one of these dose optimization te chniques: automated exposure control; mA and/or kV adjustment per patient size (includes targeted exa ms where dose is matched to clinical indication); or iterative reconstruction.
[2024-11-21] MEDS: LORazepam 2 MG/ML VIAL 1 MG IVP (07:31)
[2024-11-21] MEDS: diazePAM 10 MG/2 ML SYR (07:32)
--- NOTE | 2024-11-21 08:07 | DI.VRAD_ITS ---
PROCEDURE INFORMATION: Exam: CT Head Without Contrast Exam date and time: 11/21/2024 7:15 AM Age: 78 years old Clinical indication: Injury or trauma; Injury details: Fall, on eliquis, ? seizure TECHNIQUE: Imaging protocol: Computed tomography of the head without contrast. COMPARISON: CT HEAD CERVICAL SPINE WO 10/15/2024 11:52 AM FINDINGS: Brain: Age-appropriate cortical atrophy. Mild periventricular white matter changes. Intracranial vascular calcification. No mass effect. Cerebral ventricles: No ventriculomegaly. Paranasal sinuses: Visualized sinuses are unremarkable. No fluid levels. Mastoid air cells: Visualized mastoid air cells are well aerated. Bones: Unremarkable. No acute fracture. Soft tissues: Unremarkable. IMPRESSION: No acute intracranial abnormality. PROCEDURE INFORMATION: Exam: CT Maxillofacial Without Contrast Exam date and time: 11/21/2024 7:15 AM Age: 78 years old Clinical indication: Injury or trauma; Injury details: Fall, on eliquis, ? seizure TECHNIQUE: Imaging protocol: Computed tomography of the face without contrast. COMPARISON: CT HEAD CERVICAL SPINE WO 10/15/2024 11:52 AM FINDINGS: Paranasal sinuses: No air-fluid levels. Orbital cavities: Orbits are normal. Globes are unremarkable. Bones: No acute fracture. Soft tissues: Unremarkable. IMPRESSION: No acute findings. PROCEDURE INFORMATION: Exam: CT Cervical Spine Without Contrast Exam date and time: 11/21/2024 7:15 AM Age: 78 years old Clinical indication: Injury or trauma; Injury details: Fall, on eliquis, ? seizure TECHNIQUE: Imaging protocol: Computed tomography of the cervical spine without contrast. COMPARISON: CT HEAD CERVICAL SPINE WO 10/15/2024 11:52 AM FINDINGS: Bones: No acute fracture. Normal alignment. Multilevel degenerative change. No evidence of acute fracture, subluxation or perched facet. Lungs: Lung apices are normal. Soft tissues: Unremarkable. IMPRESSION: No acute findings. Dictated and Authenticated by: Sarah Gleason MD. Orderin Newton Gonzalez MD
[2024-11-21 08:16] LABS: Abs Immature Grans 0.07 10^3/uL (0.0-0.06); Absolute Basophil Count 0.03 10^3/uL (0.0-0.2); Absolute Eosinophil Count 0.11 10^3/uL (0.0-0.7); Absolute Lymphocyte Count 0.67 10^3/uL (1.2-3.4); Absolute Monocyte Count 0.91 10^3/uL (0.1-0.8); Absolute Neutrophil Count 7.65 10^3/uL (1.2-6.7); Basophils % 0.3 %; Eosinophils % 1.2 %; HCT 41.3 % (40.0-50.0); HGB 13.8 g/dL (13.5-17.5); Immature Grans % 0.7 %; Lymphocytes % 7.1 %; MCH 30.8 pg (27.0-33.0); MCHC 33.4 % (32.0-36.0); MCV 92 fL (80-95); MPV 10.3 fL (8.0-11.0); Monocytes % 9.6 %; Neutrophils % 81.1 %; Platelet Count 228 10^3/uL (130-400); RBC 4.48 10^6/uL (4.36-5.78); RDW 12.3 % (11.8-14.1); RDW-SD 41.9 fL; WBC 9.44 10^3/uL (4.4-10.8)
--- NOTE | 2024-11-21 08:30 | DI.VRAD_ITS ---
PROCEDURE INFORMATION: Exam: CT Thoracic Spine Without Contrast Exam date and time: 11/21/2024 7:18 AM Age: 78 years old Clinical indication: Screening exam; Other; Eval for trauma, severe back pain; Severe dementia, back pain after fall, on eliquis TECHNIQUE: Imaging protocol: Computed tomography of the thoracic spine without contrast. COMPARISON: CT HEAD CERV SPINE FACIAL WO 11/21/2024 7:15 AM FINDINGS: Bones/joints: Normal alignment. No appreciable rib fracture in the visualized portions of the ribs. [id number] degenerative changes within the thoracic spine. Compression fracture anterior and middle columns of T5. Minimal retropulsed fragment inferiorly of 2-3 mm. No appreciable central canal narrowing. Soft tissues: Unremarkable. Vasculature: Vascular calcifications of the aorta Lungs: Visualized portions of the lung bases appear normal. Mild presumed atelectasis within the lung bases. IMPRESSION: 1. [id number] degenerative changes within the thoracic spine. 2. Compression fracture anterior and middle columns of T5. Minimal retropulsed fragment inferiorly of 2-3 mm. No appreciable central canal narrowing. Age indeterminate. Consider MRI if indicated. PROCEDURE INFORMATION: Exam: CT Lumbar Spine Without Contrast Exam date and time: 11/21/2024 7:18 AM Age: 78 years old Clinical indication: Screening exam; Other; Eval for trauma, severe back pain; Severe dementia, back pain after fall, on eliquis TECHNIQUE: Imaging protocol: Computed tomography of the lumbar spine without contrast. COMPARISON: CT CHEST/ABD/PEL WO 11/21/2024 7:18 AM FINDINGS: Bones/joints: Severe diffuse degenerative disc disease reflected as severe decrease in disc space height and anterior endplate osteophytosis. No spondylolisthesis. No pars defect. Multi-level facet hypertrophic changes. Compression fracture anterior and to a lesser degree the middle columns of L2. Minimal retropulsed fragment superiorly of approximately 2-3 mm. Soft tissues: Unremarkable. IMPRESSION: 1. Compression fracture anterior and to a lesser degree the middle columns of L2. Minimal retropulsed fragment superiorly of approximately 2-3 mm. No appreciable paravertebral edema. Likely chronic. 2. Severe diffuse degenerative disc disease. Dictated and Authenticated by: Akira Molina MD. Orderin Newton Gonzalez MD
[2024-11-21 08:31] LABS: INR 1.2 (0.9-1.1); PTT Activated 27.6 sec (20.6-30.2); Prothrombin Time 11.6 sec (9.1-11.1)
--- NOTE | 2024-11-21 08:44 | DI.VRAD_ITS ---
PROCEDURE INFORMATION: Exam: CT Chest Without Contrast; Diagnostic Exam date and time: 11/21/2024 7:18 AM Age: 78 years old Clinical indication: Screening exam; Other screening; Fall, eval for trauma, on eliquis, severe dementia TECHNIQUE: Imaging protocol: Diagnostic computed tomography of the chest without contrast. COMPARISON: CT CHEST WO 10/15/2024 11:57 AM FINDINGS: Thyroid: Nodularity right thyroid gland of approximately 1 cm. Lungs: Mild atelectasis within the lung bases. Lungs are otherwise well aerated. Pleural spaces: Unremarkable. No pneumothorax. No pleural effusion. Heart: Unremarkable. No cardiomegaly. No pericardial effusion. Coronary arteries: Severe coronary calcifications Mediastinal space: Thoracic inlet is unremarkable. Lymph nodes: mediastinum is unremarkable other than a few small mediastinal lymph nodes. Vasculature: Calcification of the aorta. Origin of the great vessels including the innominate artery, the right common carotid artery, the subclavian arteries and the left common carotid artery are normal. Bones/joints: Mildly comminuted fracture involving the right clavicle medially adjacent to the sternoclavicular joint. Old 4th rib fracture on the left anteriorly. Old 6th rib fracture on the left laterally. Careful attention in regards to evaluation of the ribs given the history of trauma. A rib fracture is not visualized. Severe degenerative changes left and right glenohumeral joint. Previously described fracture involving the anterior and middle columns of T5 Soft tissues: Soft tissues are unremarkable. IMPRESSION: 1. Mildly comminuted fracture involving the right clavicle medially adjacent to the sternoclavicular joint. 2. Careful attention in regards to evaluation of the ribs given the history of trauma. An acute rib fracture is not visualized. 3. Mild atelectasis within the lung bases. Lungs are otherwise well aerated. No visualized pneumothorax. 4. Previously described fracture involving the anterior and middle columns of T5 Sensitivity for detection of vascular abnormalities is decreased without IV contrast.Impression. PROCEDURE INFORMATION: Exam: CT Abdomen And Pelvis Without Contrast Exam date and time: 11/21/2024 7:18 AM Age: 78 years old Clinical indication: Screening exam; Other screening; Fall, eval for trauma, on eliquis, severe dementia TECHNIQUE: Imaging protocol: Computed tomography of the abdomen and pelvis without contrast. COMPARISON: CT CHEST WO 10/15/2024 11:57 AM FINDINGS: Liver: Normal. No mass. Gallbladder and biliary ducts: Gallstones. Pancreas: Normal. No ductal dilation. Spleen: Normal. No splenomegaly. Adrenal glands: Normal. No mass. Kidneys and ureters: 2 cm cyst right kidney Stomach and bowel: Moderate amount stool within the large bowel. Appendix: Appendix normal. Intraperitoneal space: no acute intra-abdominal process. No free fluid in the pelvis. No evidence of visceral injury. Vasculature: Unremarkable. No abdominal aortic aneurysm. Lymph nodes: Unremarkable. No enlarged lymph nodes. Urinary bladder: Unremarkable as visualized. Reproductive: Unremarkable as visualized. Bones/joints: Previously described fracture involving the anterior and middle columns of L2. Likely chronic. No paravertebral edema. Possible minimally possible mild compression fracture anterior column of L1. No paravertebral edema. Soft tissues: Soft tissues are unremarkable. Periumbilical ventral hernia. Small. IMPRESSION: 1. No acute intra-abdominal process. No free fluid in the pelvis. No evidence of visceral injury. 2. Gallstones. 3. Appendix normal. 4. Previously described fracture involving the anterior and middle columns of L2. Likely chronic. No paravertebral edema. Possible minimally possible mild compression fracture anterior column of L1. No paravertebral edema. Sensitivity for detection of parenchymal lesions is decreased without IV contrast.Impression. Dictated and Authenticated by: Akira Molina MD. Orderin Newton Gonzalez MD
[2024-11-21 08:46] LABS: ALT 28 U/L (16-63); AST 18 U/L (15-37); Albumin 3.6 g/dL (3.4-5.0); Alkaline Phosphatase 118 U/L (46-116); BUN 18 mg/dL (7-18); Bilirubin, Total 0.5 mg/dL (0.2-1.0); CREATININE 1.1 mg/dL (0.70-1.30); Calcium 9.3 mg/dL (8.5-10.1); Chloride 104 mmol/L (98-107); Estimated GFR 69.14 (mL/min/1.73m2); Glucose 102 mg/dL (74-106); Sodium 139 mmol/L (136-145); Total Protein 6.9 g/dL (6.4-8.2)
[2024-11-21] MEDS: Lidocaine 5% Patch 1 PATCH TP (09:16)
--- NOTE | 2024-11-21 09:26 | ED.PROG_ITS ---
Date of service: 11/21/24 Time of Service: 09:26 Medical Decision Making Labs unremarkable, CT shows chronic L2 fracture and a compression fracture of T5 which is where he is currently having pain. He has no neurological deficits so I doubt spinal cord impingement. He also noted a mildly comminuted fracture i nvolving the right clavicle there is absolutely pain in this area so it does not appear to be acute. Patient is ambulated on his own without assistance and has not had any recurrent falls or other concerning symptoms. He is stable for discharge and will follow-up with his PCP, return precautions given Quality:SDPR Health Related Social Needs: No Data to Display Discharge Plan Disposition Patient Disposition: Home Condition: Stable Discharge Details Clinical Impression: Alzheimer disease, Fall Primary Care Provider: Ena Belcher ED Provider: Steven De La Vega Home Meds and New Rx's Prescriptions: New lidocaine 5 % adhesive patch,medicated 1 patch topical DAILY Qty: 30 0RF Rx Instructions: leave on most painful area for up to 12 hrs Continued cholecalciferol (vitamin D3) 1,000 unit capsule 1,000 unit PO DAILY albuterol sulfate [Ventolin HFA] 90 mcg/actuation HFA aerosol inhaler 1 - 2 puff IH Q4H PRN (Reason: shortness of breath or wheezing) Qty: 8.5 0RF acetaminophen [Tylenol] 325 mg capsule 650 mg PO DAILY PRN carbidopa-levodopa 25-100 mg tablet 1 tab PO BID Eliquis 5 mg tablet 5 mg PO BID Qty: 180 3RF gabapentin 100 mg capsule 100 mg PO BID PRN (Reason: agitation) Qty: 180 2RF quetiapine [Seroquel] 25 mg tablet 50 mg PO DAILY Qty: 180 1RF ezetimibe [Zetia] 10 mg tablet 10 mg PO DAILY Qty: 90 3RF amlodipine 5 mg tablet 5 mg PO DAILY Qty: 90 3RF tamsulosin 0.4 mg capsule 0.8 mg PO DAILY Qty: 180 3RF metoprolol succinate 25 mg tablet extended release 24 hr 25 mg PO DAILY Qty: 90 3RF benzonatate 100 mg capsule 100 mg PO TID PRN (Reason: cough) Qty: 60 2RF losartan 100 mg tablet 100 mg PO DAILY Qty: 90 3RF finasteride 5 mg tablet 5 mg PO DAILY Qty: 90 3RF
== END 2024-11-21 09:59 | disposition home or self-care (01) ==
PROVIDERS: Student in an Organized Health Care Education/Training Program; Emergency Provider Emergency Medicine; PCP Family Medicine
DX: M48.54XA Collapsed vertebra, not elsewhere classified, thoracic region, initial encounter for fracture (principal); M48.56XD Collapsed vertebra, not elsewhere classified, lumbar region, subsequent encounter for fracture with routine healing; S42.017A Nondisplaced fracture of sternal end of right clavicle, initial encounter for closed fracture; G31.83 Neurocognitive disorder with Lewy bodies; F02.C0 Dementia in other diseases classified elsewhere, severe, without behavioral disturbance, psychotic disturbance, mood disturbance, and anxiety; Z79.01 Long term (current) use of anticoagulants; Z87.891 Personal history of nicotine dependence; W06.XXXA Fall from bed, initial encounter; Y93.89 Activity, other specified; Y92.013 Bedroom of single-family (private) house as the place of occurrence of the external cause
CPT/HCPCS: 00123; 36415; 71250; 80053; 96374; 99285; 70450; 70486; 72125; 72128; 72131; 74176; 85025; 85610; 85730; J2060; J3360